=== PATIENT | female | born 1955 | race Hispanic/Latino ===

== ENCOUNTER 2017-08-21 23:30 | Inpatient (IN) | payer BC ==
[2017-08-21] MEDS ORDERED: IPRATROPIUM BROM 0.5MG/2.5ML ONE (23:51)
[2017-08-21] MEDS ORDERED: METHYLPREDNISOLONE 125 MG INJ ONE (23:51)
[2017-08-21] MEDS ORDERED: ALBUTEROL 2.5 MG/3 ML NEB SOL ONE (23:51)
[2017-08-21] MEDS ORDERED: FUROSEMIDE 100 MG/10 ML VIAL IV ONE (23:57)
[2017-08-21] MEDS ORDERED: NITROGLYCERIN 0.4 MG/TAB SL ONE (23:58)
[2017-08-22 00:05] LABS: Absolute Lymphocytes (CBC) 2.3 K/uL (0.7-4.9); Absolute Monocytes 0.5 K/uL (0.1-1.3); Absolute Neutrophil 8.4 K/uL (1.8-8.0); Basophils % 0.6 % (0-1.3); Eosinophils % 2.4 % (0-4.4); Hematocrit 45.5 % (36.0-45.0); Lymphocytes % 19.9 % (15.3-44.8); MCH 24.6 pg (27.0-35.0); MCV 77.4 fL (80-100); MPV 11.3 fL (7.6-11.3); Monocytes % 4.2 % (3.3-12.3); RBC Red Blood Cell Count 5.88 M/uL (3.86-4.86)
[2017-08-22 00:10] LABS: Protime INR 0.89
[2017-08-22 00:14] LABS: Arterial Blood Carboxyhemoglob 0.9 % (0-1.5); Blood Gas Oxyhemoglobin 96.3 % (94-97); Blood O2 Saturation 98.2 % (92-98.5)
[2017-08-22 00:16] LABS: Potassium 4.3 mEq/L (3.6-5.0)
[2017-08-22 00:22] LABS: Albumin 4.3 g/dL (3.2-5.5); Bilirubin Direct 0.1 mg/dL (0-0.2); Bilirubin Total 0.4 mg/dL (0.3-1.2); Magnesium 2.3 mg/dL (1.8-2.5); Protein, Total 9.2 g/dL (6.0-8.3)
[2017-08-22 00:26] LABS: CKMB Creatine Kinase MB 1.6 ng/ml (0.3-4.0)
--- NOTE | 2017-08-22 01:09 | ER ---
Nurse's Notes [facility] Name: Allyson Cleaning Age: 62 yrs Sex: Female : 1955 Arrival Date: 08/21/2017 Time: 23:31 Bed 6 Private MD: Jac Huang S Diagnosis: Acute respiratory distress. Severe hypertension. Chronic renal disease Presentation: 08/21 23:41 Presenting complaint: Patient states: SOB with cough, sudden onset. pt with wheezing. ak1 Transition of care: patient was not received from another setting of care. Onset of symptoms was August 21, 2017. Risk Assessment: Do you want to hurt yourself or someone else? Patient reports no desire to harm self or others. Initial Sepsis Screen: Does the patient meet any 2 criteria? No. Patient's initial sepsis screen is negative. Does the patient have a suspected source of infection? No. Patient's initial sepsis screen is negative. Care prior to arrival: None. 23:41 Method Of Arrival: Ambulatory ak1 23:41 Acuity: MARY ELLEN 2 ak1 Triage Assessment: 23:43 General: Appears distressed, uncomfortable, Behavior is cooperative. Pain: Denies pain. ak1 EENT: No signs and/or symptoms were reported regarding the EENT system. Neuro: No deficits noted. Cardiovascular: No deficits noted. Respiratory: Reports shortness of breath cough that is air hunger Onset: The symptoms/episode began/occurred suddenly , the patient has moderate shortness of breath. Historical: - Allergies: 23:43 Sulfa (Sulfonamide Antibiotics); ak1 - Home Meds: 23:43 atenolol 50 mg Oral tab [Active]; clonidine HCl 0.1 mg Oral tab [Active]; clopidogrel ak1 75 mg Oral tab [Active]; Lasix 20 mg Oral tab [Active]; Plavix 75 mg Oral tab once daily [Active]; - PMHx: 23:43 NV; ak1 23:45 Hypertension; ak1 - PSHx: 23:43 Heart stents; ak1 - Immunization history:: Adult Immunizations unknown. - Social history:: Smoking status: Patient/guardian denies using tobacco. - Ebola Screening: : No symptoms or risks identified at this time. Screenin:40 Abuse screen: Denies threats or abuse. Denies injuries from another. Nutritional mg2 screening: No deficits noted. Tuberculosis screening: No symptoms or risk factors identified. 08/22 00:26 Fall Risk mg2 Assessment: 00:07 General: Appears distressed, Behavior is calm, cooperative. Pain: Denies pain. Neuro: mg2 Level of Consciousness is awake, alert, obeys commands, Oriented to person, place, time. Cardiovascular: Capillary refill < 3 seconds Patient's skin is warm and dry. Cardiovascular: Rhythm is regular. Respiratory: Airway is patent Respiratory effort is even, labored, Respiratory pattern is regular, symmetrical, tachypnea Breath sounds with wheezes bilaterally. in left posterior upper lobe, right posterior upper lobe, left posterior lower lobe, right posterior middle lobe and right posterior lower lobe. GI: No signs and/or symptoms were reported involving the gastrointestinal system. : No signs and/or symptoms were reported regarding the genitourinary system. EENT: No signs and/or symptoms were reported regarding the EENT system. Derm: Skin is intact, Skin is pink, warm \T\ dry. normal. Musculoskeletal: No signs and/or symptoms reported regarding the musculoskeletal system. 00:26 Reassessment: patient passed urine and stool in ed. mg2 Vital Signs: 08/21 23:43 Pulse 115; Resp 24; Temp 98.6(O); Pulse Ox 83% on R/A; Weight 83.91 kg (R); Height 5 ak1 ft. 3 in. (160.02 cm) (R); Pain 0/10; 23:43 Pulse Ox 88% on 4 lpm NC; ak1 08/22 00:26 BP 225 / 115; Pulse 110; Resp 22; Pulse Ox 96% on Nebulizer Mask; Pain 0/10; mg2 01:03 BP 182 / 94; Pulse 108; Resp 20; Pulse Ox 93% on R/A; Pain 0/10; mg2 01:13 BP 173 / 81; Pulse 103; Resp 20; Pulse Ox 98% 3 lpm ; Pain 0/10; mg2 08/21 23:43 Body Mass Index 32.77 (83.91 kg, 160.02 cm) ak1 ED Course: 08/21 23:31 Patient arrived in ED. es 23:31 Jac Huang MD is Private Physician. es 23:34 Sohan Qiu MD is Attending Physician. pkl 23:35 Clive Tipton RN is Primary Nurse. mg2 23:42 Triage completed. ak1 23:44 Arm band placed on Patient placed in an exam room, on a stretcher, on oxygen, on pulse ak1 oximetry, Patient notified of wait time. 08/22 00:00 Inserted saline lock: 22 gauge in right hand, using aseptic technique. Blood collected. bp 00:08 X-ray completed. Portable x-ray completed in exam room. Patient tolerated procedure kw well. 00:10 XRAY Chest (1 view) In Process Unspecified. EDMS 00:18 Notified ED physician of a critical lab result(s). d dimer of 831. fc 00:25 Patient has correct armband on for positive identification. Placed in gown. Bed in low mg2 position. Call light in reach. Side rails up X 1. Door closed. Warm blanket given. Assisted to bedside commode. 01:07 Mariam Olivo MD is Hospitalizing Provider. pkl 01:17 No provider procedures requiring assistance completed. mg2 01:43 Patient admitted, IV remains in place. mg2 Administered Medications: 00:00 Drug: Nitroglycerin 0.4 mg Route: Sublingual; bp 01:01 Follow up: Response: No adverse reaction; Blood pressure is lowered mg2 01:01 Follow up: Response: No adverse reaction mg2 00:00 Drug: Lasix 80 mg Route: IVP; Site: right hand; bp 01:00 Follow up: Response: No adverse reaction; Other; patient passed urine and sob relieved mg2 00:06 Drug: SOLU-Medrol 125 mg Route: IVP; Site: right hand; mg2 01:02 Follow up: Response: No adverse reaction mg2 00:07 Drug: Albuterol - atroVENT (3:1) (2.5 mg - 0.5 mg) 3 ml Route: Nebulizer; mg2 01:01 Follow up: Response: No adverse reaction; Other; wheezing decreased mg2 Intake: Outcome: 01:08 Decision to Hospitalize by Provider. pkl 02:05 Admitted to Tele accompanied by tech, via wheelchair, room 415, with chart, Report mg2 called to BERTA Wu 02:05 Condition: stable 02:05 Instructed on the need for admit, Demonstrated understanding of instructions. 02:35 Patient left the ED. mg2 Signatures: Dispatcher [employer] Sohan Churchill MD MD pkl Valerie Matson Felicia, RN RN fc Stefany Myles Amber, RN RN ak1 Sampson Orta, RN RN bp Clive Tipton, RN RN mg2
--- NOTE | 2017-08-22 01:09 | EDPHYS ---
Physician Documentation [facility] Name: Allyson Cleaning Age: 62 yrs Sex: Female : 1955 Arrival Date: 08/21/2017 Time: 23:31 Bed 6 Private MD: Jac Huang S ED Physician Sohan Qiu HPI: 08/21 23:46 This 62 yrs old Female presents to ER via Ambulatory with complaints of pkl Wheezing < 1 Year, Breathing Difficulty. 23:46 The patient has shortness of breath at rest. Onset: The symptoms/episode began/occurred pkl today. Associated signs and symptoms: Pertinent positives: non-productive cough. Historical: - Allergies: 23:43 Sulfa (Sulfonamide Antibiotics); ak1 - Home Meds: 23:43 atenolol 50 mg Oral tab [Active]; clonidine HCl 0.1 mg Oral tab [Active]; clopidogrel ak1 75 mg Oral tab [Active]; Lasix 20 mg Oral tab [Active]; Plavix 75 mg Oral tab once daily [Active]; - PMHx: 23:43 AK; ak1 23:45 Hypertension; ak1 - PSHx: 23:43 Heart stents; ak1 - Immunization history:: Adult Immunizations unknown. - Social history:: Smoking status: Patient/guardian denies using tobacco. - Ebola Screening: : No symptoms or risks identified at this time. ROS: 23:46 Eyes: Negative for injury, pain, redness, and discharge, ENT: Negative for injury, pkl pain, and discharge, Neck: Negative for injury, pain, and swelling, Cardiovascular: Negative for chest pain, palpitations, and edema. 23:46 Respiratory: Positive for cough, with no reported sputum, shortness of breath, wheezing. 23:46 Abdomen/GI: Negative for abdominal pain, nausea, vomiting, and diarrhea. 23:46 Back: Negative for acute changes. 23:46 : Negative for urinary symptoms. 23:46 MS/extremity: Negative for acute changes. 23:46 Skin: Negative for rash. 23:46 Neuro: Negative for altered mental status. Exam: 23:46 Head/Face: Normocephalic, atraumatic. Eyes: Pupils equal round and reactive to light, pkl extra-ocular motions intact. Lids and lashes normal. Conjunctiva and sclera are non-icteric and not injected. Cornea within normal limits. Periorbital areas with no swelling, redness, or edema. ENT: Nares patent. No nasal discharge, no septal abnormalities noted. Tympanic membranes are normal and external auditory canals are clear. Oropharynx with no redness, swelling, or masses, exudates, or evidence of obstruction, uvula midline. Mucous membranes moist. Neck: Trachea midline, no thyromegaly or masses palpated, and no cervical lymphadenopathy. Supple, full range of motion without nuchal rigidity, or vertebral point tenderness. No Meningismus. Chest/axilla: Normal chest wall appearance and motion. Nontender with no deformity. No lesions are appreciated. Cardiovascular: Regular rate and rhythm with a normal S1 and S2. No gallops, murmurs, or rubs. Normal PMI, no JVD. No pulse deficits. 23:46 Respiratory: mild respiratory distress is noted, Respirations: labored breathing, that is mild, Breath sounds: rales, that are mild, are scattered, bronchial sounds, that are mild, are scattered. 23:46 Abdomen/GI: Exam negative for acute changes. 23:46 Back: Exam negative for acute changes. 23:46 : Exam negative for acute changes. 23:46 Musculoskeletal/extremity: Exam is negative for acute changes. 23:46 Skin: Exam negative for rash. 23:46 Neuro: Orientation: is normal, Mentation: is normal, Cranial nerves: grossly normal, Motor: is normal. Vital Signs: 23:43 Pulse 115; Resp 24; Temp 98.6(O); Pulse Ox 83% on R/A; Weight 83.91 kg (R); Height 5 ak1 ft. 3 in. (160.02 cm) (R); Pain 0/10; 23:43 Pulse Ox 88% on 4 lpm NC; ak1 / 00:26 BP 225 / 115; Pulse 110; Resp 22; Pulse Ox 96% on Nebulizer Mask; Pain 0/10; mg2 01:03 BP 182 / 94; Pulse 108; Resp 20; Pulse Ox 93% on R/A; Pain 0/10; mg2 01:13 BP 173 / 81; Pulse 103; Resp 20; Pulse Ox 98% 3 lpm ; Pain 0/10; mg2 06/12 23:43 Body Mass Index 32.77 (83.91 kg, 160.02 cm) ak MDM: 08/21 23:34 Patient medically screened. [facility] 08/22 01:06 Data reviewed: vital signs, nurses notes, lab test result(s), EKG, radiologic studies, pkl plain films. 08/21 23:44 Order name: Basic Metabolic Panel; Complete Time: 00:58 pkl 08/21 23:44 Order name: BNP; Complete Time: 00:58 pkl 08/21 23:44 Order name: CBC with Diff pkl 08/21 23:44 Order name: Ckmb; Complete Time: 00:58 pkl 08/21 23:44 Order name: CPK; Complete Time: 00:58 pkl 08/21 23:44 Order name: LFT's; Complete Time: 00:58 pkl 08/21 23:44 Order name: Magnesium; Complete Time: 00:58 pkl 08/21 23:44 Order name: PT-INR; Complete Time: 00:58 pkl 08/21 23:44 Order name: Ptt, Activated; Complete Time: 00:58 pkl 08/21 23:44 Order name: Troponin (emerg Dept Use Only); Complete Time: 00:58 pkl 08/21 23:44 Order name: ABG; Complete Time: 00:58 pkl 08/21 23:44 Order name: D-Dimer; Complete Time: 00:58 pk 08/22 01:01 Order name: Hemoglobin A1c pk 08/22 01:40 Order name: Urine Dipstick--Ancillary (enter results) 08/21 23:44 Order name: XRAY Chest (1 view) pk 08/21 23:44 Order name: EKG; Complete Time: 23:44 pk 08/21 23:44 Order name: Cardiac monitoring; Complete Time: 23:48 pkl 08/21 23:44 Order name: EKG - Nurse/Tech; Complete Time: 00:00 pkl 08/21 23:44 Order name: IV Saline Lock; Complete Time: 23:48 pkl 08/21 23:44 Order name: Labs collected and sent; Complete Time: 23:48 pkl 08/21 23:44 Order name: O2 Per Protocol; Complete Time: 23:48 pkl 08/21 23:44 Order name: O2 Sat Monitoring; Complete Time: 23:49 pk 08/21 23:44 Order name: Urine Dipstick-Ancillary (obtain specimen); Complete Time: 01:33 pkl 08/22 02:24 Order name: Urine Dipstick-Ancillary; Complete Time: 02:42 EDMS Administered Medications: 00:00 Drug: Nitroglycerin 0.4 mg Route: Sublingual; bp 01:01 Follow up: Response: No adverse reaction; Blood pressure is lowered mg2 01:01 Follow up: Response: No adverse reaction mg2 00:00 Drug: Lasix 80 mg Route: IVP; Site: right hand; bp 01:00 Follow up: Response: No adverse reaction; Other; patient passed urine and sob relieved mg2 00:06 Drug: SOLU-Medrol 125 mg Route: IVP; Site: right hand; mg2 01:02 Follow up: Response: No adverse reaction mg2 00:07 Drug: Albuterol - atroVENT (3:1) (2.5 mg - 0.5 mg) 3 ml Route: Nebulizer; mg2 01:01 Follow up: Response: No adverse reaction; Other; wheezing decreased mg2 Disposition: 08/22/17 01:08 Hospitalization ordered by Mariam Olivo for Observation. Preliminary diagnosis is Acute respiratory distress. Severe hypertension. Chronic renal disease. - Bed requested for Telemetry/MedSurg (observation). - Status is Observation. mg2 - Condition is Stable. - Problem is new. - Symptoms have improved. UTI on Admission? No Signatures: Dispatcher [employer] EDMS Sohan Qiu MD MD pkl Chretien, Felicia, RN RN Dunia Nieves RN RN ak1 Sampson Orta RN RN bp Clive Tipton RN RN mg2 Corrections: (The following items were deleted from the chart) 01:09 01:08 Hospitalization Ordered by Mariam Olivo MD for Observation. Preliminary fc diagnosis is Acute respiratory distress. Severe hypertension. Chronic renal disease. Bed requested for Telemetry/MedSurg (observation). Status is Observation. Condition is Stable. Problem is new. Symptoms have improved. UTI on Admission? No. pkl 02:35 01:09 08/22/2017 01:08 Hospitalization Ordered by Mariam Olivo MD for Observation. mg2 Preliminary diagnosis is Acute respiratory distress. Severe hypertension. Chronic renal disease. Bed requested for Telemetry/MedSurg (observation). Status is Observation. Condition is Stable. Problem is new. Symptoms have improved. UTI on Admission? No. fc
[2017-08-22 02:24] LABS: Urine Blood 1+ (NEG); Urine Glucose TRACE (NEG); Urine Protein 2+ (NEG)
[2017-08-22] MEDS ORDERED: HYDRALAZINE HCL 20 MG/ML VIAL IV PRN (02:24)
[2017-08-22] MEDS ORDERED: IPRATROPIUM BROM 0.5MG/2.5ML NEB PRN (02:24)
[2017-08-22] MEDS ORDERED: ACETAMINOPHEN 500 MG TAB PO PRN (02:24)
[2017-08-22] MEDS ORDERED: ALBUTEROL 2.5 MG/3 ML NEB SOL NEB PRN (02:24)
[2017-08-22] MEDS ORDERED: ONDANSETRON 4 MG/2 ML VIAL IV PRN (02:24)
[2017-08-22 02:54] VITALS: BMI 34.2
[2017-08-22 03:04] LABS: A1c Component 1.16 mg/dL; Hemoglobin A1c 8.9 % (4-6.0)
[2017-08-22 04:50] LABS: Absolute Lymphocytes (CBC) 0.6 K/uL (0.7-4.9); Absolute Monocytes 0.1 K/uL (0.1-1.3); Absolute Neutrophil 12.2 K/uL (1.8-8.0); Basophils % 0.3 % (0-1.3); Hematocrit 43.3 % (36.0-45.0); Lymphocytes % 4.4 % (15.3-44.8); MCV 77.5 fL (80-100); MPV 11.2 fL (7.6-11.3); Monocytes % 0.9 % (3.3-12.3); RBC Red Blood Cell Count 5.59 M/uL (3.86-4.86)
[2017-08-22] MEDS ORDERED: FUROSEMIDE 40 MG/4 ML VIAL IV ONE (05:00)
[2017-08-22 05:13] LABS: Potassium 4.3 mEq/L (3.6-5.0)
[2017-08-22 05:14] LABS: Blood Morphology Comment NOT SEEN (NOT SEEN); Platelet Estimate ADEQ; Urine White Blood Cell Casts OK
[2017-08-22 05:28] VITALS: TEMP 97.9
[2017-08-22] MEDS ORDERED: GLUCAGON 1 MG/VIAL IM PRN (06:03)
[2017-08-22] MEDS ORDERED: D50W 25 GM/50 ML SYRINGE IV PRN (06:03)
[2017-08-22] MEDS ORDERED: METOPROLOL TAR 25 MG TAB PO SCH (06:06)
--- NOTE | 2017-08-22 06:19 | EKG ---
Test Date: 2017-08-21 Test Time: 23:52:10 Corner Trimmer Operator: PAM MEASUREMENT RESULTS: Intervals: Rate: 96 WI: 156 QRSD: 80 QT: 354 QTc: 447 [place]: P: 60 WI: 156 QRS: 26 T: 106 INTERPRETIVE STATEMENTS: Normal sinus rhythm Septal infarct, age undetermined ST & T wave abnormality, consider lateral ischemia Abnormal ECG Compared to ECG 07/09/2016 02:34:47 ST (T wave) deviation now present T-wave abnormality no longer present Myocardial infarct finding still present Possible ischemia still present Electronically Signed On 08-22-17 06:18:58 CDT by Danyel Castellanos
--- NOTE | 2017-08-22 06:26 | P.HP ---
Certification for Inpatient Patient admitted to: Observation With expected LOS: <2 Midnights Practitioner: I am a practitioner with admitting privileges, knowledge of patient current condition, hospital course, and medical plan of care. Services: Services provided to patient in accordance with Admission requirements found in Title 42 Section 412.3 of the Code of Federal Regulations Patient History Date of Service: 08/22/17 Reason for admission: acute respiratory failure History of Present Illness: Ms Cleaning is a 62 years old woman with history of CAD, s/p stent placement, HTN, dyslipidemia, who came to ED complaining of SOB. The patient was having dinner with her , when start feeling burning chest pain, that she believed was secondary to gastric reflux. She took some tums and the pain subside after several minutes. Then, suddenly start feeling SOB, associated with dry cough. She has no history of fever or chills. At arrival to ED her BP was 225/115, O2 Sat 83%, CXR shows bilateral infiltrate consistent with fluid overload. She was treated with IV lasix, Nitro SL, breathing treatments. Gradually her symptoms resolved, and her BP decreased. At my encounter she was on non-distress, and was not complaining of chest pain. Initial trop I negative, EKG shows T wave inversion on lateral leads. Allergies Sulfa (Sulfonamide Antibiotics Allergy (Uncoded 08/22/17 02:39) Unknown - Past Medical/Surgical History Diabetic: Yes -: HTN -: HYPERLIPIDEMIA -: CHF -: ID -: HEART STENT -: X3 -: cyst removal from ovary - Family History Brother -: Heart disease, Diabetes Mother -: Heart disease Father -: Heart disease - Social History Smoking Status: Never smoker Alcohol use: Yes CD- Drugs: No Caffeine use: Yes Place of Residence: Home Review of Systems 10-point ROS is otherwise unremarkable Physical Examination - Vital Signs Temperature: 97.9 F Blood Pressure: 188/88 Pulse: 90 Respirations: 20 Pulse Ox (%): 98 - Physical Exam General: Alert, In no apparent distress HEENT: Atraumatic, PERRLA, Mucous membr. moist/pink, EOMI, Sclerae nonicteric Neck: Supple, 2+ carotid pulse no bruit, No LAD, Without JVD or thyroid abnormality Respiratory: Normal air movement, Crackles/rales (bibasilar rales) Cardiovascular: Regular rate/rhythm, Normal S1 S2 Gastrointestinal: Normal bowel sounds, No tenderness Musculoskeletal: No tenderness, Swelling (bilateral LE edema 1+) Integumentary: No rashes Neurological: Normal speech, Normal strength at 5/5 x4 extr, Normal tone, Normal affect Lymphatics: No axilla or inguinal lymphadenopathy - Studies Laboratory Data (last 24 hrs) 08/21/17 23:50: PT 10.5, INR 0.89, APTT 30.0 08/21/17 23:50: WBC 11.6 H, Hgb 14.5, Hct 45.5 H, Plt Count 211 08/21/17 23:50: B-Natriuretic Peptide 225 H 08/21/17 23:50: Sodium 138, Potassium 4.3, BUN 41 H, Creatinine 1.76 H, Glucose 283 H, Magnesium 2.3, Total Bilirubin 0.4, AST 22, ALT 13, Alkaline Phosphatase 145 H Assessment and Plan - Problems (Diagnosis) (1) Pulmonary edema Current Visit: Yes Status: Acute Qualifiers: Chronicity: acute Qualified Code(s): J81.0 - Acute pulmonary edema (2) CAD (coronary artery disease) Onset Date: 07/10/16 Current Visit: No Status: Acute Qualifiers: Coronary Disease-Associated Artery/Lesion type: solomon artery [place] vs. transplanted heart: solomon heart Associated angina: with unstable angina Qualified Code(s): I25.110 - Atherosclerotic heart disease of solomon coronary artery with unstable angina pectoris (3) CKD (chronic kidney disease), stage III Onset Date: 07/10/16 Current Visit: No Status: Acute (4) Diabetes type 2, uncontrolled Onset Date: 07/10/16 Current Visit: No Status: Acute Qualifiers: Diabetes mellitus intermediate insulin use: without intermediate use Diabetes mellitus complication status: with unspecified complications Qualified Code(s) : E11.8 - Type 2 diabetes mellitus with unspecified complications; E11.65 - Type 2 diabetes mellitus with hyperglycemia (5) Essential (primary) hypertension Onset Date: 07/10/16 Current Visit: No Status: Acute - Plan The patient came to the hospital due to respiratory failure secondary to flash pulmonary edema in context of HTN emergency. Her troponin I was normal initially but subsequent one was elevated. EKG shows signs of lateral ischemia, will repeat EKG. The patient symptoms improved after treatment, and currently is asymptomatic, however, her BP is still elevated. Will order beta chet, PRN IV hydralazine, ASA, full anticoagulation with Lovenox, ECHO, consult cardiology. Serial EKG and cardiac enzymes. - Advance Directives Does patient have a Living Will: No Does patient have a Durable POA for Healthcare: No
[2017-08-22] MEDS: INSULIN -REGULAR HUMAN 50 UNIT/0.5 ML ML SQ SCH ×2 (06:30→12:23)
--- NOTE | 2017-08-22 07:46 | EKG ---
Test Date: 2017-08-22 Test Time: 06:29:17 After School Program Assistant: MONICA MEASUREMENT RESULTS: Intervals: Rate: 112 MI: 154 QRSD: 84 QT: 330 QTc: 450 [place]: P: 58 MI: 154 QRS: 1 T: 129 INTERPRETIVE STATEMENTS: Sinus tachycardia Left ventricular hypertrophy with repolarization abnormality Cannot rule out Septal infarct, age undetermined Abnormal ECG Compared to ECG 08/21/2017 23:52:10 Left ventricular hypertrophy now present Sinus rhythm no longer present Electronically Signed On 08-22-17 07:45:23 CDT by Danyel Castellanos
--- NOTE | 2017-08-22 08:46 | RAD REPORT ---
EXAM DESCRIPTION: RAD - Chest Single View - 08/22/2017 12:11 am CLINICAL HISTORY: Cough, shortness of breath COMPARISON: 07/09/2016 FINDINGS: Portable technique limits examination quality. Vague ill-defined opacity medial right lung base is noted, likely representing pneumonia. The lungs a re otherwise clear. The heart is normal in size. No displaced fractures. IMPRESSION: Ill-defined opacity in the medial right lung base suspicious for developing pneumonia/ a spiration.
[2017-08-22] MEDS ORDERED: ENOXAPARIN 100 MG/ML SYR SQ SCH (09:00)
[2017-08-22] MEDS ORDERED: ENOXAPARIN 40 MG/0.4 ML SQ SCH (09:00)
[2017-08-22] MEDS ORDERED: ASPIRIN EC 81 MG TAB PO SCH (09:00)
--- NOTE | 2017-08-22 10:20 | RAD REPORT ---
EXAM DESCRIPTION: VAS - Extrem Venous W Compress Alan - 08/22/2017 9:38 am CLINICAL HISTORY: Elevated D-dimer, leg pain and swelling COMPARISON: None. TECHNIQUE: Real-time sonographic evaluation of the bilateral lower extremity deep venous systems was performed. FINDINGS: Normal compressibility, flow augmentation, phasic flow and spontaneous flow are identified in the left and right lower extremity deep venous systems. No intraluminal filling defects seen. IMPRESSION: No DVT in either lower extremity.
[2017-08-22 11:20] VITALS: BP 180/110
--- NOTE | 2017-08-22 12:25 | ECHO ---
HEIGHT: 5 ft 3 in WEIGHT: 193 lb 9.6 oz DATE OF STUDY: 08/22/[address]: Mariam Schrieber MD 2-DIMENSIONAL: YES M.MODE: YES DOPPLER: YES COLOR FLOW: YES TDS: YES PORTABLE: DEFINITY: BUBBLE STUDY: DIAGNOSIS: CHEST PAIN CARDIAC HISTORY: CATHERIZATION: NO SURGERY: NO PROSTHETIC VALVE: NO PACEMAKER: NO MEASUREMENTS (cm) DIASTOLIC (NORMALS) SYSTOLIC (NORMALS) IVSd 1.3 (0.6-1.2) LA Diam 3.9 (1.9-4.0) LVEF 55% LVIDd 4.6 (3.5-5.7) LVIDs 3.3 (2.0-3.5) %FS 29% LVPWd 1.3 (0.6-1.2) Ao Diam 2.8 (2.0-3.7) 2 DIMENSIONAL ASSESSMENT: RIGHT ATRIUM: NORMAL LEFT ATRIUM: DILATED RIGHT VENTRICLE: NORMAL LEFT VENTRICLE: LEFT VENTRICULAR HYPERTROPHY TRICUSPID VALVE: NORMAL MITRAL VALVE: NORMAL PULMONIC VALVE: NORMAL AORTIC VALVE: NORMAL PERICARDIAL EFFUSION: NONE AORTIC ROOT: NORMAL LEFT VENTRICULAR WALL MOTION: NORMAL DOPPLER/COLOR FLOW: IMPAIRED LEFT VENTRICULAR RELAXATION. TRACE TRICUSPID REGURGITAITON. NORMAL RIGHT VENTRICULAR SYSTOLIC PRESSURE. COMMENTS: NORMAL LEFT VENTRICULAR EJECTION FRACTION. LEFT VENTRICULAR HYPERTROPHY. DILATED LEFT ATRIUM. IMPAIRED LEFT VENTRICULAR RELAXATION. TRACE TRICUSPID REGURGITATION. TECHNICALLY DIFFICULT STUDY. TECHNOLOGIST: ANGELO MCDONALD
--- NOTE | 2017-08-22 13:27 | CON ---
History Of Present Illness: Mrs. Cleaning is a 62-year-old. She came to the hospital, not with chest pa in. She insists that was not pain, but she felt wheezy and had difficulty breathing. Does not reall y admit to tightness in the chest or pain. When she came in, she was in sinus tachycardia. There wa s marked ST abnormality and since she has been in the hospital overnight, she has had what looks like possible some interstitial pulmonary edema, which is improved and troponins have gone up from 0.03 t o 0.12. She has a history of a myocardial infarction and a stent about 15 years ago, was treated by Dr. Marcano. She no longer follows up with Dr. Marcano. Outpatient medications are CholestOff. She is known to have hypertension and diabetes, but she does not actually list any medications that she take s at home. She is allergic to sulfa. Uses no tobacco, no alcohol, no illegal drugs. We have [address] that she takes atenolol, clonidine, clopidogrel, and Lasix. Those are listed on other charts and she does not really have a memory of it, so I think we are in doubt is what medicine she really takes . Physical Examination: Vital Signs: 5 feet 3 inches, 193 pounds. HEENT: Normal. Lungs: Clear. Heart: Within normal limits. There is no carotid bruit. Extremities: Revealed distal pulses are diminished. Laboratory Data: Reveals a creatinine of 1.85, blood sugar of 427. Her total cholesterol was 207, L DL was 129, B-natriuretic peptide 255. Impression: I believe Ms. Cleaning has had a non-ST elevation non-Q-wave myocardial infarction. I belie ve she should have a cardiac cath and possible stent. At this point, the patient wants to contact Dr Davon Marcano to see what he thinks. She is not willing to proceed with a cardiac cath. Thank you very much for your kind referral of Mrs. Cleaning. I will follow her with you. KAREN/CONCEPCION Voice ID: [id number] Report ID: [id number]
[2017-08-22 14:48] VITALS: O2SAT 98
--- NOTE | 2017-08-22 15:09 | P.DS ---
Admission Date: 08/22/17 Discharge Date: 08/22/17 Disposition: ROUTINE DISCHARGE Discharge Condition: FAIR Reason for Admission: acute respiratory failure - Problems (1) Pulmonary edema Current Visit: Yes Status: Acute Qualifiers: Chronicity: acute Qualified Code(s): J81.0 - Acute pulmonary edema (2) CAD (coronary artery disease) Onset Date: 07/10/16 Current Visit: No Status: Acute Qualifiers: Coronary Disease-Associated Artery/Lesion type: [place] artery Hoh vs. transplanted heart: [place] heart Associated angina: with unstable angina Qualified Code(s): I25.110 - Atherosclerotic heart disease of [place] coronary artery with unstable angina pectoris (3) CHF exacerbation Onset Date: 07/10/16 Current Visit: No Status: Acute (4) CKD (chronic kidney disease), stage III Onset Date: 07/10/16 Current Visit: No Status: Acute (5) Diabetes type 2, uncontrolled Onset Date: 07/10/16 Current Visit: No Status: Acute Qualifiers: Diabetes mellitus prison insulin use: without petroleum terminal plant operator use Diabetes mellitus complication status: with unspecified complications Qualified Code(s) : E11.8 - Type 2 diabetes mellitus with unspecified complications; E11.65 - Type 2 diabetes mellitus with hyperglycemia (6) Essential (primary) hypertension Onset Date: 07/10/16 Current Visit: No Status: Acute Brief History of Present Illness: From H&P Ms Cleaning is a 62 years old woman with history of CAD, s/p stent placement, HTN, dyslipidemia, who came to ED complaining of SOB. The patient was having dinner with her , when start feeling burning chest pain, that she believed was secondary to gastric reflux. She took some tums and the pain subside after several minutes. Then, suddenly start feeling SOB, associated with dry cough. She has no history of fever or chills. At arrival to ED her BP was 225/115, O2 Sat 83%, CXR shows bilateral infiltrate consistent with fluid overload. She was treated with IV lasix, Nitro SL, breathing treatments. Gradually her symptoms resolved, and her BP decreased. At my encounter she was on non-distress, and was not complaining of chest pain. Initial trop I negative, EKG shows T wave inversion on lateral leads. Hospital Course: Pt admitted for SOB secondary to flash pulmonary edema from uncontrolled BP. IV prn meds used, AceI added. BP better controlled. Lasix IV given with heavy diuresis. SOB resolved. Cardiology Dr. Castellanos saw her however pt refused heart cath. She has elevated trop and t wave chagnes on EKG. No chest pain. Patient is alert and oriented. She understands risks associated w refusing heart cath including TX, . at the bedside. Nurse Greta present. Patient states she will f/up w her facilities operations technician Dr. Marcano. I spoke w him and he will see her bryan in his [place] clinic. Echo showed LVH and EF 55%. Counseled regarding CKD III. She did not know she had chronic kidney disease. She will be started on AceI for renal protection. She understands that she needs to f/up w a jewelry sales as out pt. she can develop ESRD and be dependant on HD if her kidneys worsen. Vital Signs/Physical Exam: Temp Pulse Resp BP Pulse Ox 97.9 F 84 18 180/110 H 98 08/22/17 12:00 08/22/17 12:00 08/22/17 12:00 08/22/17 12:00 08/22/17 12:00 General: Alert, In no apparent distress, Oriented x3 HEENT: Atraumatic, PERRLA, EOMI Neck: Supple, JVD not distended Respiratory: Clear to auscultation bilaterally, Normal air movement Cardiovascular: Regular rate/rhythm, Normal S1 S2 Gastrointestinal: Normal bowel sounds, No tenderness Musculoskeletal: No tenderness Integumentary: No rashes Neurological: Normal speech, Normal tone, Normal affect Lymphatics: No axilla or inguinal lymphadenopathy Laboratory Data at Discharge: WBC 13.0 K/uL (4.3-10.9) H 08/22/17 03:35 Hgb 14.0 g/dL (12.0-15.0) 08/22/17 03:35 Hct 43.3 % (36.0-45.0) 08/22/17 03:35 Plt Count 174 K/uL (152-406) 08/22/17 03:35 PT 10.5 SECONDS (9.5-12.5) 08/21/17 23:50 INR 0.89 08/21/17 23:50 APTT 30.0 SECONDS (24.3-36.9) 08/21/17 23:50 Sodium 137 mEq/L (135-145) 08/22/17 03:35 Potassium 4.3 mEq/L (3.6-5.0) 08/22/17 03:35 BUN 43 mg/dL (6-20) H 08/22/17 03:35 Creatinine 1.85 mg/dL (0.44-1.00) H 08/22/17 03:35 Glucose 427 mg/dL (65-120) H* 08/22/17 03:35 Magnesium 2.3 mg/dL (1.8-2.5) 08/21/17 23:50 Total Bilirubin 0.4 mg/dL (0.3-1.2) 08/21/17 23:50 AST 22 IU/L (10-42) 08/21/17 23:50 ALT 13 IU/L (10-60) 08/21/17 23:50 Alkaline Phosphatase 145 IU/L (42-121) H 08/21/17 23:50 Troponin I 0.12 ng/mL (<0.03) H 08/22/17 03:55 B-Natriuretic Peptide 225 pg/ml (<=100) H 08/21/17 23:50 Triglycerides 133 mg/dL (35-160) 08/22/17 03:35 Cholesterol 207 mg/dL (<200) H 08/22/17 03:35 HDL Cholesterol 51 mg/dL (29-89) 08/22/17 03:35 Cholesterol/HDL Ratio 4.06 08/22/17 03:35 Home Medications: Aspirin [Aspirin EC 81 MG] 162 mg PO DAILY #60 tablet. 08/22/17 Atorvastatin Calcium [Lipitor] 80 mg PO BEDTIME #30 tab 08/22/17 Clopidogrel Bisulfate [Plavix*] 75 mg PO DAILY 08/22/17 Furosemide 20 mg PO DAILY 08/22/17 Lisinopril [Prinivil*] 10 mg PO DAILY #30 tab 08/22/17 Metoprolol Tartrate 25 mg PO BID 08/22/17 New Medications: Aspirin [Aspirin EC 81 MG] 162 mg PO DAILY #60 tablet. Atorvastatin Calcium [Lipitor] 80 mg PO BEDTIME #30 tab Lisinopril [Prinivil*] 10 mg PO DAILY #30 tab Patient Discharge Instructions: f/up w PCP in 2-3 days. Call primary facilities operations technician Dr. Attar today to schedule appt this week. Return to ER for worsening condition Diet: ADA Activity: Ad fermín Time spent managing pt's care (in minutes): 45
[2017-08-22] MEDS ORDERED: ATORVASTATIN 80 MG TAB PO SCH (21:00)
[2017-08-23] MEDS ORDERED: CLOPIDOGREL 75 MG TABLET PO SCH (09:00)
[2017-08-23] MEDS ORDERED: LISINOPRIL 10 MG TAB PO SCH (09:00)
== END 2017-08-22 16:31 | disposition home or self-care (01) | DRG 280 ==
LOC: ER 23:30 → ERHOLD 08-22 01:13 → 4TH 08-22 02:09 → OBSVTOIN 08-22 14:02
PROVIDERS: ADMIT Internal Medicine; ATTEND Internal Medicine
DX: I13.0 Hypertensive heart and chronic kidney disease with heart failure and stage 1 through stage 4 chronic kidney disease, or unspecified chronic kidney disease (principal); J96.00 Acute respiratory failure, unspecified whether with hypoxia or hypercapnia; I21.4 Non-ST elevation (NSTEMI) myocardial infarction; I50.31 Acute diastolic (congestive) heart failure; I25.110 Atherosclerotic heart disease of native coronary artery with unstable angina pectoris; N18.3 Chronic kidney disease, stage 3 (moderate); E11.22 Type 2 diabetes mellitus with diabetic chronic kidney disease; E11.65 Type 2 diabetes mellitus with hyperglycemia; Z95.5 Presence of coronary angioplasty implant and graft; E78.5 Hyperlipidemia, unspecified; Z79.02 Long term (current) use of antithrombotics/antiplatelets; Z88.2 Allergy status to sulfonamides; I25.2 Old myocardial infarction; R06.03 Acute respiratory distress
CPT/HCPCS: 36415; 71045; 80048; 80061; 80076; 81003; 82550; 82553; 82805; 82962; 83036; 83735; 83880; 84484; 85025; 85379; 85610; 85730; 93005; 93306; 93970; 94640; 94760; 96374; 96375; 99285; G0378; J0360; J1650; J2930

== ENCOUNTER 2022-02-06 14:42 | Inpatient (IN) | payer OTHER ==
[2022-02-06] MEDS ORDERED: LEVALBUTEROL 1.25 MG/3 ML NEB ONE (15:57)
[2022-02-06] MEDS ORDERED: IPRATROPIUM BROM 0.5MG/2.5ML ONE (15:57)
[2022-02-06 15:59] LABS: Absolute Lymphocytes (CBC) 1.3 K/uL (0.7-4.9); Lymphocytes % 11.7 % (15.3-44.8); MCV 81.5 fL (80-100)
--- NOTE | 2022-02-06 16:00 | RAD REPORT ---
EXAM DESCRIPTION: RAD - Chest Single View - 02/06/2022 3:53 pm CLINICAL HISTORY: SOB COMPARISON: Chest Single View dated 08/21/2017; Chest Single View dated 07/09/2016 FINDINGS: Lines: None. Lungs: Large area developing consolidation in the left lung. Pleural: Small pleural effusions bilaterally. Cardiac: The heart size is within normal limits. Mediastinum: Within normal limits. Bones: No acute fractures. Other: None IMPRESSION: Left lung process which may represent a large consolidative pneumonia or mass. Recommend further evaluation with chest CT.
[2022-02-06 16:14] LABS: Albumin 3.6 g/dL (3.4-5.0); Bilirubin Direct 0.4 mg/dL (0-0.2); Bilirubin Total 1.5 mg/dL (0.2-1.0); Magnesium 2.3 mg/dL (1.8-2.4); Potassium 3.8 mmol/L (3.5-5.1); Protein, Total 9.2 g/dL (6.4-8.2); Troponin High Sensitivity 29.3 pg/mL (<58.9)
[2022-02-06 16:53] LABS: SARS-COV-2 RT PCR NEGATIVE (NEGATIVE)
[2022-02-06] MEDS ORDERED: CEFTRIAXONE 1000 MG/VIAL ONE (17:33)
[2022-02-06] MEDS ORDERED: AZITHROMYCIN 500 MG INJ IVPB ONE (17:34)
[2022-02-06] MEDS ORDERED: NA CHLORIDE 0.9% 250 ML ONE (17:34)
--- NOTE | 2022-02-06 17:34 | EDPHYS ---
Physician Documentation [facility] Name: Allyson Cleaning Age: 67 yrs Sex: Female : 1955 Arrival Date: 02/06/2022 Time: 14:47 Bed 12 Private MD: Jac Huang S ED Physician Joao Lennon HPI: 02/06 15:35 This 67 yrs old Female presents to ER via Wheelchair with complaints of cp Pneumonia,Low O2-90. 15:35 The patient has shortness of breath at rest. cp 15:35 Onset: The symptoms/episode began/occurred 2 day(s) ago. Duration: The symptoms are cp continuous, and are steadily getting worse. Associated signs and symptoms: Pertinent negatives: chest pain, productive cough, diaphoresis, fever, hemoptysis, vomiting. Patient reports oxygen sats were low while at dialysis today. Patient referred to ED for evaluation. Historical: - Allergies: 15:30 Sulfa (Sulfonamide Antibiotics); iw - PMHx: 15:30 Hypertension; [place]; dialysis; iw - Immunization history:: Adult Immunizations unknown. - Social history:: Smoking status: unknown. ROS: 15:40 Constitutional: Negative for body aches, chills, fever, poor PO intake. cp 15:40 Eyes: Negative for injury, pain, redness, and discharge. cp 15:40 ENT: Negative for drainage from ear(s), ear pain, sore throat, difficulty swallowing, difficulty handling secretions. 15:40 Cardiovascular: Positive for edema, Negative for chest pain, palpitations. 15:40 Respiratory: Positive for shortness of breath, at rest. Negative for wheezing. 15:40 Abdomen/GI: Negative for abdominal pain, nausea, vomiting, and diarrhea, constipation. 15:40 Back: Negative for pain at rest, pain with movement. 15:40 Skin: Negative for cellulitis, rash. 15:40 Neuro: Negative for altered mental status, dizziness, headache, syncope, weakness. 15:40 All other systems are negative. Exam: 15:45 Constitutional: The patient appears in no acute distress, alert, awake, cp non-diaphoretic, non-toxic, well developed, well nourished. 15:45 Head/Face: Normocephalic, atraumatic. cp 15:45 Eyes: Periorbital structures: appear normal, Conjunctiva: normal, no exudate, no injection, Sclera: no appreciated abnormality, Lids and lashes: appear normal, bilaterally. 15:45 ENT: External ear(s): are unremarkable, Nose: is normal, Mouth: Lips: moist, Oral mucosa: pink and intact, moist, Posterior pharynx: Airway: no evidence of obstruction, patent, erythema, is not appreciated, exudate, is not appreciated. 15:45 Neck: ROM/movement: is normal, is supple, without pain, no range of motions limitations, no meningismus. 15:45 Chest/axilla: Inspection: normal. 15:45 Cardiovascular: Rate: tachycardic, Rhythm: regular, Edema: ankle edema, that is mild, JVD: is not appreciated. 15:45 Respiratory: the patient does not display signs of respiratory distress, Respirations: shallow respirations, that is mild, Breath sounds: decreased breath sounds, that are mild, throughout, stridor, is not appreciated, wheezing: is not appreciated. 15:45 Abdomen/GI: Inspection: abdomen appears normal, Palpation: abdomen is soft and non-tender, in all quadrants. 15:45 Back: pain, is absent, ROM is normal. 15:45 Neuro: Orientation: to person, place \T\ time. Mentation: is normal, Motor: moves all fours, strength is normal, Sensation: is normal. 16:15 ECG was reviewed by the Attending Physician. Vital Signs: 15:35 BP 160 / 69; Pulse 102; Resp 18; Temp 98.9; Pulse Ox 90% on R/A; iw 16:00 BP 160 / 59; Pulse 95; Resp 20; Pulse Ox 95% on 3 lpm NC; em6 17:00 BP 157 / 62; Pulse 89; Resp 20; Pulse Ox 94% on 3 lpm NC; em6 18:00 BP 144 / 56; Pulse 95; Resp 20; Pulse Ox 95% 3 lpm ; em6 19:00 BP 135 / 49; Pulse 98; Resp 20; Pulse Ox 92% on 3 lpm NC; em6 20:00 BP 134 / 78; Pulse 94; Resp 20; Pulse Ox 94% on 3 lpm NC; em6 Procedures: 19:06 Peripheral line: by aseptic technique a peripheral line was placed in the right cp external jugular vein. MDM: 15:30 Patient medically screened. 17:35 Data reviewed: vital signs, nurses notes, lab test result(s), EKG, radiologic studies, cp plain films. 17:35 Test interpretation: by ED physician or midlevel provider: ECG, plain radiologic cp studies. 17:35 Counseling: I had a detailed discussion with the patient and/or guardian regarding: the cp historical points, exam findings, and any diagnostic results supporting the discharge/admit diagnosis, lab results, radiology results, the need for further work-up and treatment in the hospital. Response to treatment: the patient's symptoms have mildly improved after treatment. 02/06 15:31 Order name: Basic Metabolic Panel; Complete Time: 16:54 02/06 16:55 Interpretation: Normal except: NA 132; BUN 43; CRE 4.17; GFR 11. 02/06 15:31 Order name: CBC with Diff; Complete Time: 16:06 02/06 16:06 Interpretation: Normal except: WBC 11.10; HGB 11.5; HCT 35.0; MCH 26.8; DAHLIA% 80.7; LYM% cp 11.7; NEUT A 9.0. 02/06 15:31 Order name: LFT's; Complete Time: 16:54 02/06 16:56 Interpretation: Normal except: ALK 135; BILIT 1.5; BILID 0.4; TP 9.2; GLOB 5.6; A/G 0.6. 02/06 15:31 Order name: Magnesium; Complete Time: 16:54 02/06 15:31 Order name: NT PRO-BNP; Complete Time: 16:54 02/06 16:56 Interpretation: Reviewed. 02/06 15:31 Order name: PT-INR; Complete Time: 19:18 02/06 15:31 Order name: Troponin HS; Complete Time: 16:54 02/06 15:31 Order name: XRAY Chest (1 view); Complete Time: 16:06 02/06 17:12 Interpretation: Report review. 02/06 15:31 Order name: COVID-19/FLU A+B; Complete Time: 16:54 02/06 16:08 Order name: Blood Culture Adult (2) 02/06 16:08 Order name: Lactate w/ 2H reflex if indic.; Complete Time: 22:42 02/06 16:08 Order name: Procalcitonin; Complete Time: 22:42 02/06 22:42 Interpretation: Reviewed. 02/06 16:11 Order name: CT Chest Wo Con 02/06 18:33 Order name: CT; Complete Time: 19:18 EDMS 02/06 22:42 Interpretation: Report reviewed. 02/06 15:31 Order name: EKG; Complete Time: 15:32 02/06 15:31 Order name: Cardiac monitoring; Complete Time: 16:19 02/06 15:31 Order name: EKG - Nurse/Tech; Complete Time: 16:19 02/06 15:31 Order name: IV Saline Lock 02/06 15:31 Order name: Labs collected and sent; Complete Time: 16:19 02/06 15:31 Order name: O2 Per Protocol; Complete Time: 16:19 02/06 15:31 Order name: O2 Sat Monitoring; Complete Time: 16:19 02/06 17:47 Order name: CONS Physician Consult EDMS EC:15 Rate is 102 beats/min. Rhythm is regular. SD interval is normal. QRS interval is cp normal. QT interval is normal. T waves are Inverted in leads aVL, aVR. Interpreted by me. Reviewed by me. Administered Medications: 16:05 Drug: Xopenex (levalbuterol) (3) 1.25 mg Route: Inhalation; iw 17:00 Follow up: Response: No adverse reaction em6 16:05 Drug: AtroVENT (ipratropium) Aerosol 0.5 mg Route: Inhalation; iw 17:00 Follow up: Response: No adverse reaction em6 19:23 Drug: Rocephin (cefTRIAXone) 1 grams Route: IV; Rate: calculated rate; Site: right em6 jugular; 20:11 Follow up: Response: No adverse reaction; IV Intake: 10ml em6 19:23 Drug: Zithromax (azithromycin) 500 mg Route: IVPB; Infused Over: 1 hrs; Site: right em6 jugular; 20:11 Follow up: Response: No adverse reaction; IV Status: Infusion continued upon admission em6 Disposition: 19:29 Co-signature as Attending Physician, Joao NARANJO was immediately available on-site ms3 in the Emergency Department for consultation in the care of the patient.. Disposition Summary: 02/06/22 17:34 Hospitalization Ordered Hospitalization Status: Inpatient Admission cp Provider: Tyler Joya cp [facility] cp Condition: Stable cp Problem: new cp Symptoms: have improved cp Bed/Room Type: Standard cp Room Assignment: 405(02/06/22 19:33) cg Diagnosis - Pneumonia due to other specified infectious organisms cp - Hypoxemia cp Discharge Instructions: - Discharge Summary Sheet cp Forms: - Medication Reconciliation Form cp - SBAR form cp Signatures: Dispatcher [employer] EDKisha Souza RN RN iw Cruz Portillo, SUPERVISOR CONTINGENTS-C SUPERVISOR CONTINGENTS-Cla1 Fran Desir PA PA cp Tonia Jeter RN RN Joao Lennon DO DO ms3 Arely Thomas RN RN em6 Corrections: (The following items were deleted from the chart) 19:33 17:34 cp cg
--- NOTE | 2022-02-06 17:34 | ER ---
Nurse's Notes [facility] Name: Allyson Cleaning Age: 67 yrs Sex: Female : 1955 Arrival Date: 02/06/2022 Time: 14:47 Bed 12 Private MD: Jac Huang S Diagnosis: Pneumonia due to other specified infectious organisms;Hypoxemia Presentation: 02/06 15:29 Chief complaint: Patient states: her Oxygen was low in dialysis , she has been SOB iw since Sunday. Coronavirus screen: Client presents with at least one sign or symptom that may indicate coronavirus-19. Ebola Screen: Patient negative for fever greater than or equal to 101.5 degrees Fahrenheit, and additional compatible Ebola Virus Disease symptoms Patient denies exposure to infectious person. Patient denies travel to an Ebola-affected area in the 21 days before illness onset. Onset of symptoms was February 06, 2022. 15:29 Method Of Arrival: Wheelchair iw 15:29 Acuity: MARY ELLEN 3 iw 16:00 Initial Sepsis Screen: Does the patient meet any 2 criteria? RR > 20 per min. HR > 90 em6 bpm. Yes Does the patient have a suspected source of infection? No. Patient's initial sepsis screen is negative. Risk Assessment: Do you want to hurt yourself or someone else? Patient reports no desire to harm self or others. Historical: - Allergies: 15:30 Sulfa (Sulfonamide Antibiotics); iw - PMHx: 15:30 Hypertension; [place]; dialysis; iw - Immunization history:: Adult Immunizations unknown. - Social history:: Smoking status: unknown. Screenin:00 Abuse screen: Denies threats or abuse. Nutritional screening: No deficits noted. em6 Tuberculosis screening: No symptoms or risk factors identified. 18:40 Fall Risk IV access (20 points). Total Sanders Fall Scale indicates No Risk (0-24 pts). em6 Assessment: 16:00 General: Appears in no apparent distress. Behavior is cooperative. Pain: Denies pain. em6 Neuro: An Agitation-Sedation Scale (RASS): 0 - Alert and Calm. Cardiovascular: Patient's skin is warm and dry. Rhythm is sinus rhythm. Respiratory: Airway is patent Respiratory effort is even, unlabored, Respiratory pattern is regular, symmetrical, tachypnea Breath sounds with crackles in left posterior upper lobe and left posterior lower lobe. GI: No signs and/or symptoms were reported involving the gastrointestinal system. : No signs and/or symptoms were reported regarding the genitourinary system. EENT: No signs and/or symptoms were reported regarding the EENT system. Derm: No signs and/or symptoms reported regarding the dermatologic system. Musculoskeletal: Circulation, motion, and sensation intact. Range of motion: intact in all extremities. 16:00 Reassessment: dialysis port on the left lower arm. em6 17:00 Reassessment: Patient appears in no apparent distress at this time. No changes from em6 previously documented assessment. Patient and/or family updated on plan of care and expected duration. Pain level reassessed. Patient is alert, oriented x 3, equal unlabored respirations, skin warm/dry/pink. 18:00 Reassessment: Patient appears in no apparent distress at this time. No changes from em6 previously documented assessment. Patient and/or family updated on plan of care and expected duration. Pain level reassessed. Patient is alert, oriented x 3, equal unlabored respirations, skin warm/dry/pink. 19:00 Reassessment: Patient appears in no apparent distress at this time. No changes from em6 previously documented assessment. Patient and/or family updated on plan of care and expected duration. Pain level reassessed. Patient is alert, oriented x 3, equal unlabored respirations, skin warm/dry/pink. 20:00 Reassessment: Patient appears in no apparent distress at this time. No changes from em6 previously documented assessment. Patient and/or family updated on plan of care and expected duration. Pain level reassessed. Patient is alert, oriented x 3, equal unlabored respirations, skin warm/dry/pink. Vital Signs: 15:35 BP 160 / 69; Pulse 102; Resp 18; Temp 98.9; Pulse Ox 90% on R/A; iw 16:00 BP 160 / 59; Pulse 95; Resp 20; Pulse Ox 95% on 3 lpm NC; em6 17:00 BP 157 / 62; Pulse 89; Resp 20; Pulse Ox 94% on 3 lpm NC; em6 18:00 BP 144 / 56; Pulse 95; Resp 20; Pulse Ox 95% 3 lpm ; em6 19:00 BP 135 / 49; Pulse 98; Resp 20; Pulse Ox 92% on 3 lpm NC; em6 20:00 BP 134 / 78; Pulse 94; Resp 20; Pulse Ox 94% on 3 lpm NC; em6 ED Course: 14:47 Patient arrived in ED. mr 14:48 Jac Huang MD is Private Physician. mr 15:08 Fran Desir PA is PHCP. cp 15:08 Joao Lennon DO is Attending Physician. cp 15:30 Triage completed. iw 15:54 XRAY Chest (1 view) In Process Unspecified. EDMS 15:59 Arely Thomas, RN is Primary Nurse. em6 16:00 Arm band placed on. em6 16:00 Bed in low position. Call light in reach. Side rails up X2. em6 16:00 joy operator on. Pulse ox on. NIBP on. Warm blanket given. em6 16:05 COVID-19/FLU A+B Sent. iw 17:33 Tyler Joya MD is Hospitalizing Provider. cp 18:40 Inserted saline lock: 18 gauge in right EJ, using aseptic technique. Blood collected. em6 inserted by jorden heller. 19:11 Lactate w/ 2H reflex if indic. Sent. em6 19:11 Procalcitonin Sent. em6 19:11 Blood Culture Adult (2) Sent. em6 20:12 No provider procedures requiring assistance completed. Patient admitted, IV remains in em6 place. Administered Medications: 16:05 Drug: Xopenex (levalbuterol) (3) 1.25 mg Route: Inhalation; iw 17:00 Follow up: Response: No adverse reaction em6 16:05 Drug: AtroVENT (ipratropium) Aerosol 0.5 mg Route: Inhalation; iw 17:00 Follow up: Response: No adverse reaction em6 19:23 Drug: Rocephin (cefTRIAXone) 1 grams Route: IV; Rate: calculated rate; Site: right em6 jugular; 20:11 Follow up: Response: No adverse reaction; IV Intake: 10ml em6 19:23 Drug: Zithromax (azithromycin) 500 mg Route: IVPB; Infused Over: 1 hrs; Site: right em6 jugular; 20:11 Follow up: Response: No adverse reaction; IV Status: Infusion continued upon admission em6 Medication: 20:14 VIS not applicable for this client. em6 Intake: 20:11 IV: 10ml; Total: 10ml. em6 Outcome: 17:34 Decision to Hospitalize by Provider. cp 20:12 Patient left the ED. bb 20:12 Admitted to Tele accompanied by nurse, via stretcher, room 405, with oxygen. em6 20:12 Condition: stable 20:13 Instructed on the need for admit, Demonstrated understanding of instructions. em6 Signatures: Dispatcher [employer] EDHI Rebecca Mcclendon mr Cherie Marquez RN RN Kisha Blair RN RN iw Page, Corey, MALINDA PA Arely Newberry RN RN em6 Corrections: (The following items were deleted from the chart) 16:42 16:00 Respiratory: Airway is patent Respiratory effort is even, unlabored, Respiratory em6 pattern is regular, symmetrical, tachypnea em6 17:47 16:49 Reassessment: port on the left lower arm em6 em6 20:11 20:10 BP 134 / 78; Pulse 94bpm; Resp 20bpm; Pulse Ox 94% 3 lpm Nasal Cannula; em6 em6
[2022-02-06] MEDS ORDERED: HYDROCODONE/APAP 5/325 MG TAB PO PRN (17:47)
[2022-02-06] MEDS ORDERED: ONDANSETRON 4 MG/2 ML VIAL IV PRN (17:51)
[2022-02-06] MEDS ORDERED: LABETALOL 20 MG/4ML SYRINGE IV PRN (17:52)
--- NOTE | 2022-02-06 17:56 | P.HP ---
Certification for Inpatient Patient admitted to: Inpatient With expected LOS: >2 Midnights Patient will require the following post-hospital care: None Practitioner: I am a practitioner with admitting privileges, knowledge of patient current condition, hospital course, and medical plan of care. Services: Services provided to patient in accordance with Admission requirements found in Title 42 Section 412.3 of the Code of Federal Regulations Patient History Date of Service: 02/06/22 Reason for admission: Shortness of breath History of Present Illness: Patient is a 67-year-old female with a past medical history significant for FL, HLD, ESRD, CAD who presents with complaint of shortness of breath onset 2 days ago. Patient reported associated signs and symptoms of dry cough, fever, chills, rhinorrhea and dizziness. Patient denies any other signs and symptoms. Symptoms are aggravated or relieved by nothing. Patient decided to present to the hospital due to worsening symptoms. Of note, patient reported having dialysis today. Patient on MWF schedule. Allergies Sulfa (Sulfonamide Antibiotics Allergy (Uncoded 08/22/17 02:39) Unknown Home Medications: Aspirin [Aspirin EC 81 MG] 162 mg PO DAILY #60 tablet.dr 08/22/17 Atorvastatin Calcium [Lipitor] 80 mg PO BEDTIME #30 tab 08/22/17 Clopidogrel Bisulfate [Plavix*] 75 mg PO DAILY 08/22/17 Furosemide 20 mg PO DAILY 08/22/17 Metoprolol Tartrate 25 mg PO BID 08/22/17 lisinopriL [Prinivil*] 10 mg PO DAILY #30 tab 08/22/17 - Past Medical/Surgical History Diabetic: Yes -: HTN -: HYPERLIPIDEMIA -: CHF -: FL -: HEART STENT -: X3 -: cyst removal from ovary - Family History Brother -: Heart disease, Diabetes Mother -: Heart disease Father -: Heart disease - Social History Smoking Status: Never smoker Alcohol use: Yes CD- Drugs: No Caffeine use: Yes Place of Residence: Home Review of Systems General: Fever, Chills Eyes: Unremarkable ENT: Other (Rhinorrhea) Respiratory: Cough, Shortness of Breath Cardiovascular: Other (Dizziness) Gastrointestinal: Unremarkable Genitourinary: Unremarkable Musculoskeletal: Unremarkable Integumentary: Unremarkable Neurological: Other (Dizziness) Lymphatics: Unremarkable Physical Examination - Physical Exam General: Alert, Oriented x3, Cooperative, Mild distress HEENT: Atraumatic, PERRLA, Mucous membr. moist/pink, EOMI, Sclerae nonicteric Neck: Supple, 2+ carotid pulse no bruit, No LAD, Without JVD or thyroid abnormality Respiratory: Diminished, Crackles/rales Cardiovascular: No edema, Regular rate/rhythm, Normal S1 S2 Capillary refill: <2 Seconds Gastrointestinal: Normal bowel sounds, Soft and benign, No tenderness Musculoskeletal: No clubbing, No swelling, No contractures, No tenderness Integumentary: No rashes, No breakdown, No significant lesion Neurological: Normal gait, Normal speech, Normal strength at 5/5 x4 extr, Normal tone, Normal affect Lymphatics: No axilla or inguinal lymphadenopathy - Studies Laboratory Data (last 24 hrs) 02/06/22 15:45: WBC 11.10 H, Hgb 11.5 L, Hct 35.0 L, Plt Count 158 02/06/22 15:45: Sodium 132 L, Potassium 3.8, BUN 43 H, Creatinine 4.17 H, Glucose 100, Magnesium 2.3, Total Bilirubin 1.5 H, AST 22, ALT 38, Alkaline Phosphatase 135 H Assessment and Plan - Plan --Bilateral pneumonia. Noted on imaging. Blood cultures pending. Continue antibiotics, neb treatment with albuterol\Atrovent and O2 therapy. --ESRD. Patient on MWF dialysis schedule. Patient reported that she had dialysis today. Nephrology consulted. Further management per screen vent binder. --Hypertension. Poorly controlled. Continue home medications and labetalol as needed. --Hyperlipidemia. Continue statin. --Mild leukocytosis. Blood cultures pending. Continue antibiotics. --Elevated BNP. Likely secondary to volume overload due to ESRD. Echocardiogram pending to assess LV\valvular functions and wall motion. Dialysis schedule per screen vent binder. --History of FL\CAD with stents. Continue aspirin, Plavix and statin. -- Anemia of chronic disease. H&H stable. We will continue to monitor hemoglobin and transfuse if less than 7.0. --DVT prophylaxis with heparin subQ. Discharge Plan: Home Plan to discharge in: Greater than 2 days - Advance Directives Does patient have a Living Will: No Does patient have a Durable POA for Healthcare: No - Code Status/Comfort Care Code Status Assessed: Yes Physician Review: Patient Assessed, Agree with Above Assessment and Plan Critical Care: No
--- NOTE | 2022-02-06 18:31 | RAD REPORT ---
EXAM DESCRIPTION: CT - Thorax Wo Con - 02/06/2022 6:17 pm CLINICAL HISTORY: shortness of breath COMPARISON: Chest Single View dated 02/06/2022 FINDINGS: Chest Wall: No suspicious thyroid nodules or pathologic lymphadenopathy. Lungs: Bilateral pulmonary opacities, worse in the left upper lung. Pleura: Small bilateral pleural effusions. Mediastinum/jhony: No pathologic lymphadenopathy. Pulmonary arteries/Aorta: Limited evaluation without contrast. No aortic aneurysm. Heart: No significant pericardial effusion. Normal heart size. Multi-vessel coronary artery disease. Upper abdomen: No acute abnormality. Bones: No acute abnormality. Diffuse idiopathic skeletal hyperostosis noted in the spine. All CT scans are performed using dose optimization technique as appropriate and may include automated exposure control or mA/KV adjustment according to patient size. IMPRESSION: Bilateral airspace disease, worse in the left upper lung favored to represent pneumonia (viral) however asymmetric edema is within the differential.
[2022-02-06 19:06] LABS: Protime INR 1.13
[2022-02-06] MEDS: ASPIRIN 81 MG CHEWABLE TABLET PO SCH (20:00)
[2022-02-06] MEDS ORDERED: EPOETIN ALFA 10,000 UNIT/ML VIAL SQ SCH (20:00)
[2022-02-06] MEDS: IPRATROPIUM BROM 0.5MG/2.5ML NEB SCH (20:30)
[2022-02-06] MEDS: ALBUTEROL 2.5 MG/3 ML NEB SOL NEB SCH (20:30)
[2022-02-06] MEDS ORDERED: METOPROLOL TAR 25 MG TAB PO SCH (21:00)
[2022-02-06] MEDS: ATORVASTATIN 80 MG TAB PO SCH (21:00)
--- NOTE | 2022-02-06 21:26 | P.CNS ---
Date of Consult: 02/06/22 Reason for Consult: ESRD Requesting Physician: Tyler Joya Chief Complaint: Shortness of breath History of Present Illness: Patient is a 67-year-old female with a past medical history significant for CT, HLD, ESRD, CAD who presents with complaint of shortness of breath onset 2 days ago. Patient reported associated signs and symptoms of dry cough, fever, chills, rhinorrhea and dizziness. Patient denies any other signs and symptoms. Symptoms are aggravated or relieved by nothing. Patient decided to present to the hospital due to worsening symptoms. Of note, patient reported having dialysis today. Patient on MWF schedule. [facility] 15:35 This 67 yrs old Female presents to ER via Wheelchair with complaints of cp Pneumonia,Low O2-90. Allergies Sulfa (Sulfonamide Antibiotics Allergy (Uncoded 08/22/17 02:39) Unknown Home medications list reviewed: Yes Home Medications: Aspirin [Aspirin EC 81 MG] 162 mg PO DAILY #60 tablet. 08/22/17 Atorvastatin Calcium [Lipitor] 80 mg PO BEDTIME #30 tab 08/22/17 Clopidogrel Bisulfate [Plavix*] 75 mg PO DAILY 08/22/17 Furosemide 20 mg PO DAILY 08/22/17 Metoprolol Tartrate 25 mg PO BID 08/22/17 lisinopriL [Prinivil*] 10 mg PO DAILY #30 tab 08/22/17 - Past Medical/Surgical History Diabetic: Yes -: HTN -: HLD -: CHF -: CT -: ESRD on HD (Dr. Garza) -: HEART STENT -: X3 -: cyst removal from ovary - Family History Brother Medical History: Heart disease, Diabetes Mother Medical History: Heart disease Father Medical History: Heart disease - Social History Smoking Status: Unknown if ever smoked Alcohol use: Yes CD- Drugs: No Caffeine use: Yes Place of Residence: Home Review of Systems 10-point ROS is otherwise unremarkable General: Weakness, Malaise Respiratory: SOB with Excertion Physical Examination Temp Pulse Resp BP Pulse Ox 98.5 F 95 H 19 148/64 H 92 02/06/22 20:00 02/06/22 20:00 02/06/22 20:00 02/06/22 20:00 02/06/22 20:00 General: In no apparent distress, Oriented x3, Cooperative HEENT: Atraumatic Neck: Supple Respiratory: Diminished Cardiovascular: Regular rate/rhythm, Edema Gastrointestinal: Soft and benign, Non-distended Musculoskeletal: No clubbing, No contractures Integumentary: No rashes, No cyanosis Neurological: Normal speech Laboratory Data (last 24 hrs) 02/06/22 15:45: WBC 11.10 H, Hgb 11.5 L, Hct 35.0 L, Plt Count 158 02/06/22 15:45: Sodium 132 L, Potassium 3.8, BUN 43 H, Creatinine 4.17 H, Glucose 100, Magnesium 2.3, Total Bilirubin 1.5 H, AST 22, ALT 38, Alkaline Phosphatase 135 H Imagings Data: [employer] EXAM DESCRIPTION: RAD - Chest Single View - 02/06/2022 3:53 pm CLINICAL HISTORY: SOB COMPARISON: Chest Single View dated 08/21/2017; Chest Single View dated 07/09/2016 FINDINGS: Lines: None. Lungs: Large area developing consolidation in the left lung. Pleural: Small pleural effusions bilaterally. Cardiac: The heart size is within normal limits. Mediastinum: Within normal limits. Bones: No acute fractures. Other: None IMPRESSION: Left lung process which may represent a large consolidative pneumonia or mass. Recommend further evaluation with chest CT. [employer] EXAM DESCRIPTION: CT - Thorax Wo Con - 02/06/2022 6:17 pm CLINICAL HISTORY: shortness of breath COMPARISON: Chest Single View dated 02/06/2022 FINDINGS: Chest Wall: No suspicious thyroid nodules or pathologic lymphadenopathy. Lungs: Bilateral pulmonary opacities, worse in the left upper lung. Pleura: Small bilateral pleural effusions. Mediastinum/jhony: No pathologic lymphadenopathy. Pulmonary arteries/Aorta: Limited evaluation without contrast. No aortic aneurysm. Heart: No significant pericardial effusion. Normal heart size. Multi-vessel coronary artery disease. Upper abdomen: No acute abnormality. Bones: No acute abnormality. Diffuse idiopathic skeletal hyperostosis noted in the spine. All CT scans are performed using dose optimization technique as appropriate and may include automated exposure control or mA/KV adjustment according to patient size. IMPRESSION: Bilateral airspace disease, worse in the left upper lung favored to represent pneumonia (viral) however asymmetric edema is within the differential. Conclusions/Impression: ESRD on HD -HD MWF -Extra HD tomorrow for UF Hyponatremia -HD as ordered HTN with CKD/ CHF -Continue Lisinopril -Change Metoprolol to Atenolol Diastolic CHF, A/C LE Edema -Low sodium diet -HD with UF Anemia in CKD -Retacrit MWF CKD MBD -Start Ergo -Start Renvela BL PNA Acute hypoxic respiratory failure -Continue Abx -Continue Oxygen supplementation Thank you kindly for the consultation.
[2022-02-06] MEDS ORDERED: atenoloL 25 MG TAB PO SCH (21:30)
[2022-02-06] MEDS ORDERED: NA CHLORIDE 0.9% 1,000 ML IV PRN (21:39)
[2022-02-06] MEDS ORDERED: MANNITOL 25% 12.5 GM/50 ML VIAL IV PRN (21:39)
[2022-02-06 21:45] LABS: Magnesium 2.2 mg/dL (1.8-2.4); Phosphorus 3.2 mg/dL (2.5-4.9); Thyroid Stimulating Hormone 1.27 uIU/mL (0.360-3.740)
[2022-02-06] MEDS: HEPARIN 5000 UNIT/ML 1 ML VIAL SQ SCH (21:59)
[2022-02-06] MEDS ORDERED: ALBUMIN HUMAN 25% 50 ML IV SCH (22:00)
[2022-02-06 23:10] VITALS: BMI 29.9
[2022-02-07 00:26] LABS: Urine Bacteria <20 /HPF (<20); Urine Bilirubin NEGATIVE (Negative); Urine Blood 2+ (Negative); Urine Clarity Turbid (Clear); Urine Color Light-Yellow (Yellow); Urine Glucose NEGATIVE (Negative); Urine Mucus 4+ /HPF (None Seen); Urine Protein 1+ (Negative); Urine RBC 21-50 /HPF (None Seen); Urine Urobilinogen Normal (Normal); Urine WBC Clump Rare /HPF (None Seen); Urine pH 6.5 (5.0-7.0)
[2022-02-07] MEDS: IPRATROPIUM BROM 0.5MG/2.5ML NEB SCH ×4 (01:45→20:45)
[2022-02-07] MEDS: ALBUTEROL 2.5 MG/3 ML NEB SOL NEB SCH ×4 (01:45→20:45)
[2022-02-07 03:53] LABS: Absolute Lymphocytes (CBC) 1.6 K/uL (0.7-4.9); Hematocrit 30.1 % (36.0-45.0); Lymphocytes % 21.7 % (15.3-44.8); MCV 82.2 fL (80-100); MPV 10.1 fL (7.6-11.3); RBC Red Blood Cell Count 3.66 M/uL (3.86-4.86)
[2022-02-07 04:04] LABS: Potassium 3.6 mmol/L (3.5-5.1)
[2022-02-07] MEDS: SEVELAMER CARBONATE 800 MG TABLET PO SCH ×3 (08:00→16:19)
[2022-02-07] MEDS: POTASSIUM CL SA 10 MEQ TAB PO ONE ×2 (09:00→16:21)
[2022-02-07] MEDS: MULTIVITAMINS,THERAPEUT 1 TAB PO SCH ×2 (09:00→16:21)
[2022-02-07] MEDS: ASPIRIN 81 MG CHEWABLE TABLET PO SCH (09:00)
[2022-02-07] MEDS: FUROSEMIDE 20 MG TABLET PO SCH ×2 (09:00→16:18)
[2022-02-07] MEDS: CEFTRIAXONE 1,000 MG in NA CHLORIDE 0.9% 50 ML IVPB SCH ×2 (09:00→16:22)
[2022-02-07] MEDS: AZITHROMYCIN IV 500 MG in NA CHLORIDE 0.9% 250 ML IVPB SCH ×2 (09:00→16:23)
[2022-02-07] MEDS: HEPARIN 5000 UNIT/ML 1 ML VIAL SQ SCH ×2 (09:00→20:30)
[2022-02-07] MEDS: CLOPIDOGREL 75 MG TABLET PO SCH ×2 (09:00→16:21)
[2022-02-07] MEDS: DOCUSATE NA 100 MG CAP PO SCH ×2 (09:00→20:31)
[2022-02-07] MEDS: lisinopriL 10 MG TAB PO SCH ×2 (09:00→16:18)
[2022-02-07] MEDS: ACETAMINOPHEN 325 MG TABLET PO PRN (14:26)
--- NOTE | 2022-02-07 20:04 | P.PN ---
Date of Service: 02/07/22 Vital Signs Temp Pulse Resp BP Pulse Ox 100.5 F 104 H 20 150/60 H 94 02/07/22 16:00 02/07/22 16:18 02/07/22 16:00 02/07/22 16:18 02/07/22 16:00 Medications Acetaminophen (Acetaminophen 325 Mg Tablet) 650 mg PO Q6H PRN PRN Reason: TEMP > 100' F Last Admin: 02/07/22 14:26 Dose: 650 mg Hydrocodone Bitart/Acetaminophen (Hydrocodone/Apap 5/325 Mg Tab) 1 tab PO Q6H PRN PRN Reason: Pain scale 5-7 (Moderate) Albuterol Sulfate (Albuterol 2.5 Mg/3 Ml Neb Guerline) 2.5 mg NEB [id number] [facility] Last Admin: 02/07/22 13:53 Dose: 2.5 mg Aspirin (Aspirin 81 Mg Chewable Tablet) 81 mg PO DAILY [facility] Last Admin: 02/07/22 09:00 Dose: Not Given Atenolol (Atenolol 25 Mg Tab) 25 mg PO BEDTIME [facility] Last Admin: 02/06/22 21:30 Dose: Not Given Atorvastatin Calcium (Atorvastatin 80 Mg Tab) 80 mg PO BEDTIME [facility] Last Admin: 02/06/22 21:00 Dose: Not Given Clopidogrel Bisulfate (Clopidogrel 75 Mg Tablet) 75 mg PO DAILY [facility] Last Admin: 02/07/22 16:21 Dose: 75 mg Docusate Sodium (Docusate Na 100 Mg Cap) 100 mg PO BID [facility] Last Admin: 02/07/22 09:00 Dose: Not Given Epoetin Philipp (Epoetin Philipp 10,000 Unit/Ml Vial) 10,000 unit SQ M,W,F [facility] Ergocalciferol (Drisdol (Vitamin D=Ergocalciferol) 03330 Unit Cap) 50,000 unit PO Q7D@0900 [facility] Furosemide (Furosemide 20 Mg Tablet) 20 mg PO DAILY [facility] Last Admin: 02/07/22 16:18 Dose: 20 mg Heparin Sodium (Porcine) (Heparin 5000 Unit/Ml 1 Ml Vial) 5,000 unit SQ Q12HR [facility] Last Admin: 02/07/22 09:00 Dose: Not Given Heparin Sodium (Porcine) (Heparin 1,000 Unit/Ml Vial) 3,000 unit IV EVERY HD PRN PRN Reason: Prevent Lines Clotting Ceftriaxone Sodium 1,000 mg/ (Sodium Chloride) 50 mls @ 100 mls/hr IVPB DAILY [facility]; Protocol Last Admin: 02/07/22 16:22 Dose: 50 mls Azithromycin 500 mg/ Sodium (Chloride) 250 mls @ 250 mls/hr IVPB DAILY [facility]; Protocol Last Admin: 02/07/22 16:23 Dose: 250 mls Albumin Human (Albumin 25%) 50 mls @ 100 mls/hr IV EVERY HD [facility] Ipratropium Mobile (Ipratropium Brom 0.5mg/2.5ml) 0.5 mg NEB [id number] [facility] Last Admin: 02/07/22 13:53 Dose: 0.5 mg Labetalol HCl (Labetalol 20 Mg/4ml Syringe) 10 mg IV Q6H PRN PRN Reason: Titrate to SBP >160 MMHG Lisinopril (Lisinopril 10 Mg Tab) 10 mg PO DAILY [facility] Last Admin: 02/07/22 16:18 Dose: 10 mg Mannitol (Mannitol 25% 12.5 Gm/50 Ml Vial) 12.5 gm IV EVERY HD PRN PRN Reason: Titrate to SBP (MUST DEFINE) Ondansetron HCl (Ondansetron 4 Mg/2 Ml Vial) 4 mg IV Q6HP PRN PRN Reason: NAUSEA / VOMITING Sevelamer Carbonate (Sevelamer Carbonate 800 Mg Tablet) 800 mg PO TIDWM [facility] Last Admin: 02/07/22 16:19 Dose: 800 mg Sodium Chloride (Flush Normal Saline 10 Ml) 10 ml IV BID [facility] Last Admin: 02/07/22 09:00 Dose: Not Given Vitamin B Complex/Vit C/Folic Acid (Multivitamins,Therapeut 1 Tab) 1 tab PO DAILY [facility] Last Admin: 02/07/22 16:21 Dose: 1 tab Assessment/ Plan: Nephrology No dyspnea No chest pain Feeling better today Her LUE AVF hematoma is improving No acute events overnight Vitals, medications, blood work and imaging reviewed in the chart. General: In no apparent distress, Oriented x3, Cooperative HEENT: Atraumatic Neck: Supple Respiratory: Right base rales Cardiovascular: Regular rate/rhythm, Edema Gastrointestinal: Soft and benign, Non-distended Musculoskeletal: No clubbing, No contractures Integumentary: No rashes, No cyanosis Neurological: Normal speech Laboratory Data (last 24 hrs) 02/06/22 15:45: WBC 11.10 H, Hgb 11.5 L, Hct 35.0 L, Plt Count 158 02/06/22 15:45: Sodium 132 L, Potassium 3.8, BUN 43 H, Creatinine 4.17 H, Glucose 100, Magnesium 2.3, Total Bilirubin 1.5 H, AST 22, ALT 38, Alkaline Phosphatase 135 H Imagings Data: [email or web address] EXAM DESCRIPTION: RAD - Chest Single View - 02/06/2022 3:53 pm CLINICAL HISTORY: SOB COMPARISON: Chest Single View dated 08/21/2017; Chest Single View dated 07/09/2016 FINDINGS: Lines: None. Lungs: Large area developing consolidation in the left lung. Pleural: Small pleural effusions bilaterally. Cardiac: The heart size is within normal limits. Mediastinum: Within normal limits. Bones: No acute fractures. Other: None IMPRESSION: Left lung process which may represent a large consolidative pneumonia or mass. Recommend further evaluation with chest CT. [facility] EXAM DESCRIPTION: CT - Thorax Wo Con - 02/06/2022 6:17 pm CLINICAL HISTORY: shortness of breath COMPARISON: Chest Single View dated 02/06/2022 FINDINGS: Chest Wall: No suspicious thyroid nodules or pathologic lymphadenopathy. Lungs: Bilateral pulmonary opacities, worse in the left upper lung. Pleura: Small bilateral pleural effusions. Mediastinum/jhony: No pathologic lymphadenopathy. Pulmonary arteries/Aorta: Limited evaluation without contrast. No aortic ane urysm. Heart: No significant pericardial effusion. Normal heart size. Multi-vessel coronary artery disease. Upper abdomen: No acute abnormality. Bones: No acute abnormality. Diffuse idiopathic skeletal hyperostosis noted in the spine. All CT scans are performed using dose optimization technique as appropriate and may include automated exposure control or mA/KV adjustment according to patient size. IMPRESSION: Bilateral airspace disease, worse in the left upper lung favored to represent pneumonia (viral) however asymmetric edema is within the differential. Conclusions/Impression: ESRD on HD -HD MWF -Emla cream prn Hyponatremia -HD as ordered HTN with CKD/ CHF -Continue Lisinopril -Continue Atenolol Diastolic CHF, A/C LE Edema -Low sodium diet -HD with UF Anemia in CKD -Retacrit MWF CKD MBD -Continue Ergo -Continue Renvela BL PNA Acute hypoxic respiratory failure -Continue Abx -Continue Oxygen supplementation
[2022-02-07] MEDS: ATORVASTATIN 80 MG TAB PO SCH (20:31)
[2022-02-07] MEDS: atenoloL 50 MG TAB PO SCH (20:31)
[2022-02-08] MEDS ORDERED: CALCIUM CARBONATE CHEW 500MG TAB PO PRN (01:26)
[2022-02-08] MEDS: IPRATROPIUM BROM 0.5MG/2.5ML NEB SCH ×4 (01:40→20:30)
[2022-02-08] MEDS: ALBUTEROL 2.5 MG/3 ML NEB SOL NEB SCH ×4 (01:40→20:30)
[2022-02-08 04:06] LABS: Potassium 4.3 mmol/L (3.5-5.1)
[2022-02-08] MEDS ORDERED: LIDOCAINE/PRILOCAINE CREAM TOP PRN (07:00)
[2022-02-08] MEDS: lisinopriL 10 MG TAB PO SCH (09:00)
[2022-02-08] MEDS: FUROSEMIDE 20 MG TABLET PO SCH (09:00)
[2022-02-08] MEDS: DOCUSATE NA 100 MG CAP PO SCH ×2 (09:28→20:20)
[2022-02-08] MEDS: SEVELAMER CARBONATE 800 MG TABLET PO SCH ×3 (09:28→17:39)
[2022-02-08] MEDS: MULTIVITAMINS,THERAPEUT 1 TAB PO SCH (09:28)
[2022-02-08] MEDS: HEPARIN 5000 UNIT/ML 1 ML VIAL SQ SCH ×2 (09:29→20:21)
[2022-02-08] MEDS: ASPIRIN 81 MG CHEWABLE TABLET PO SCH (09:29)
[2022-02-08] MEDS: CLOPIDOGREL 75 MG TABLET PO SCH (09:29)
[2022-02-08] MEDS: AZITHROMYCIN IV 500 MG in NA CHLORIDE 0.9% 250 ML IVPB SCH (09:29)
[2022-02-08] MEDS: CEFTRIAXONE 1,000 MG in NA CHLORIDE 0.9% 50 ML IVPB SCH (09:30)
[2022-02-08] MEDS: FUROSEMIDE 40 MG/4 ML VIAL IV SCH ×2 (11:20→17:40)
--- NOTE | 2022-02-08 13:23 | P.PN ---
Nephrology (S) Pt remains on LFNC, but reports feeling better and with less dyspnea, no cough reported. Has been OOB Vitals, medications, blood work and imaging reviewed in the chart. General: In no apparent distress, Oriented x3, Cooperative HEENT: Atraumatic Neck: Supple Respiratory: b/l air entry, scattered rales Cardiovascular: Mildly tachy, regular, no sig LE edema Gastrointestinal: Soft and benign, Non-distended Musculoskeletal: No clubbing, No contractures, Lt radiocephalic AVF Integumentary: No rashes, No cyanosis Neurological: Awake, alert, oriented, ormal speech Laboratory Data (last 24 hrs) Reviewed Conclusions/Impression: ESRD on HD -Last HD on Sun, HD ordered for today but if video and sound recorder is unable to get to pt due to busy schedule, pt can wait until tmrw AM to receive her treatment HTN with CKD/ CHF -Continue home meds Diastolic CHF, A/C -Pt is non anuric so will switch to IV lasix while awaiting dialysis/UF PNA unspecified organism, hypoxia -Continue Abx -wean off O2 as tolerated
[2022-02-08] MEDS ORDERED: LIDOCAINE/PRILOCAINE CREAM TOP SCH (14:00)
--- NOTE | 2022-02-08 16:30 | EKG ---
Test Date: 2022-02-06 Test Time: 16:10:42 Decal Maker: MEASUREMENT RESULTS: Intervals: Rate: 102 LA: 178 QRSD: 86 QT: 346 QTc: 450 [place]: P: 76 LA: 178 QRS: -5 T: 98 INTERPRETIVE STATEMENTS: Sinus tachycardia ST & T wave abnormality, consider lateral ischemia Abnormal ECG Compared to ECG 08/22/2017 06:29:17 ST (T wave) deviation now present Possible ischemia now present Left ventricular hypertrophy no longer present Early repolarization no longer present Myocardial infarct finding no longer present Electronically Signed On 02-08-22 16:23:28 EXTRUSION DIE CORRECTOR by Blayne Rosenberg
[2022-02-08] MEDS: ACETAMINOPHEN 325 MG TABLET PO PRN (17:46)
[2022-02-08] MEDS ORDERED: EPOETIN ALFA 10,000 UNIT/ML VIAL SQ SCH (20:00)
[2022-02-08] MEDS: ATORVASTATIN 80 MG TAB PO SCH (20:23)
[2022-02-08] MEDS: atenoloL 50 MG TAB PO SCH (20:24)
[2022-02-08] MEDS ORDERED: carvediloL 25 MG TAB PO SCH (21:00)
[2022-02-08] MEDS ORDERED: AMLODIPINE 10 MG TAB PO SCH (21:00)
[2022-02-09] MEDS: ALBUTEROL 2.5 MG/3 ML NEB SOL NEB SCH ×4 (01:25→20:20)
[2022-02-09] MEDS: IPRATROPIUM BROM 0.5MG/2.5ML NEB SCH ×4 (01:25→20:20)
[2022-02-09 06:06] LABS: Absolute Lymphocytes (CBC) 1.1 K/uL (0.7-4.9); Lymphocytes % 12.1 % (15.3-44.8); MCV 85.3 fL (80-100); MPV 9.9 fL (7.6-11.3); RBC Red Blood Cell Count 3.52 M/uL (3.86-4.86)
[2022-02-09 06:28] LABS: Magnesium 2.4 mg/dL (1.8-2.4); Phosphorus 5.2 mg/dL (2.5-4.9); Potassium 4.4 mmol/L (3.5-5.1)
--- NOTE | 2022-02-09 06:44 | ECHO ---
HEIGHT: 5 ft 3 in WEIGHT: 169 lb 0 oz DATE OF STUDY: 02/08/[address]: Vinicio Pascal 2-DIMENSIONAL: YES M.MODE: YES DOPPLER: YES COLOR FLOW: YES TDS: YES PORTABLE: YES DEFINITY: BUBBLE STUDY: DIAGNOSIS: CONGSETIVE HEART FAILURE CARDIAC HISTORY: CATHERIZATION: SURGERY: PROSTHETIC VALVE: PACEMAKER: MEASUREMENTS (cm) DIASTOLIC (NORMALS) SYSTOLIC (NORMALS) IVSd 1.0 (0.6-1.2) LA Diam 3.5 (1.9-4.0) LVEF 51% LVIDd 4.2 (3.5-5.7) LVIDs 3.1 (2.0-3.5) %FS 26% LVPWd 1.2 (0.6-1.2) Ao Diam 3.2 (2.0-3.7) 2 DIMENSIONAL ASSESSMENT: RIGHT ATRIUM: LEFT ATRIUM: RIGHT VENTRICLE: LEFT VENTRICLE: TRICUSPID VALVE: MITRAL VALVE: PULMONIC VALVE: AORTIC VALVE: PERICARDIAL EFFUSION: AORTIC ROOT: LEFT VENTRICULAR WALL MOTION: NORMAL DOPPLER/COLOR FLOW: TECHNICALLY DIFFICULT STUDY COMMENTS: 1. TECHNICALLY DIFFICULT STUDY 2. GROSSLY NORMAL LEFT VENTRICULAR EJECTION FRACTION AND SIZE 3. NO EFFUSION TECHNOLOGIST: RAMANA RUSSO
[2022-02-09] MEDS: CARVEDILOL 25 MG TABLET PO SCH ×2 (08:00→17:09)
[2022-02-09] MEDS: CEFTRIAXONE 1,000 MG in NA CHLORIDE 0.9% 50 ML IVPB SCH (08:20)
[2022-02-09] MEDS: AZITHROMYCIN IV 500 MG in NA CHLORIDE 0.9% 250 ML IVPB SCH (08:22)
[2022-02-09] MEDS: SEVELAMER CARBONATE 800 MG TABLET PO SCH ×3 (08:26→17:07)
[2022-02-09] MEDS: FUROSEMIDE 40 MG/4 ML VIAL IV SCH ×2 (08:26→17:07)
[2022-02-09] MEDS: HEPARIN 5000 UNIT/ML 1 ML VIAL SQ SCH ×2 (08:26→21:14)
[2022-02-09] MEDS: MULTIVITAMINS,THERAPEUT 1 TAB PO SCH (08:26)
[2022-02-09] MEDS: CLOPIDOGREL 75 MG TABLET PO SCH (08:27)
[2022-02-09] MEDS: ASPIRIN 81 MG CHEWABLE TABLET PO SCH (08:27)
[2022-02-09] MEDS: DOCUSATE NA 100 MG CAP PO SCH ×2 (08:27→21:14)
[2022-02-09] MEDS: lisinopriL 10 MG TAB PO SCH (08:40)
[2022-02-09] MEDS: AMLODIPINE 10 MG TABLET PO SCH ×2 (09:00→21:14)
[2022-02-09] MEDS ORDERED: CEFEPIME 1 GM in NA CHLORIDE 0.9% 100 ML IV SCH (13:00)
[2022-02-09] MEDS: ATORVASTATIN 80 MG TAB PO SCH (21:00)
[2022-02-09] MEDS: atenoloL 50 MG TAB PO SCH (21:00)
--- NOTE | 2022-02-09 21:14 | P.PN ---
Date of Service: 02/09/22 Vital Signs Temp Pulse Resp BP Pulse Ox 98.7 F 85 16 119/51 L 91 02/09/22 16:00 02/09/22 16:00 02/09/22 16:00 02/09/22 16:00 02/09/22 16:00 Medications Acetaminophen (Acetaminophen 325 Mg Tablet) 650 mg PO Q6H PRN PRN Reason: TEMP > 100' F Last Admin: 02/08/22 17:46 Dose: 650 mg Hydrocodone Bitart/Acetaminophen (Hydrocodone/Apap 5/325 Mg Tab) 1 tab PO Q6H PRN PRN Reason: Pain scale 5-7 (Moderate) Albuterol Sulfate (Albuterol 2.5 Mg/3 Ml Neb Guerline) 2.5 mg NEB [id number] [facility] Last Admin: 02/09/22 15:41 Dose: 2.5 mg Aspirin (Aspirin 81 Mg Chewable Tablet) 81 mg PO DAILY [facility] Last Admin: 02/09/22 08:27 Dose: 81 mg Atenolol (Atenolol 50 Mg Tab) 50 mg PO BEDTIME [facility] Last Admin: 02/08/22 20:24 Dose: Not Given Atorvastatin Calcium (Atorvastatin 80 Mg Tab) 80 mg PO BEDTIME [facility] Last Admin: 02/08/22 20:23 Dose: Not Given Calcium Carbonate/Glycine (Calcium Carbonate Chew 500mg Tab) 500 mg PO TID PRN PRN Reason: INDIGESTION Last Admin: 02/08/22 01:33 Dose: 500 mg Clopidogrel Bisulfate (Clopidogrel 75 Mg Tablet) 75 mg PO DAILY [facility] Last Admin: 02/09/22 08:27 Dose: 75 mg Docusate Sodium (Docusate Na 100 Mg Cap) 100 mg PO BID [facility] Last Admin: 02/09/22 08:27 Dose: 100 mg Epoetin Philipp (Epoetin Philipp 10,000 Unit/Ml Vial) 10,000 unit SQ M,W,F [facility] Last Admin: 02/08/22 20:00 Dose: Not Given Ergocalciferol (Drisdol (Vitamin D=Ergocalciferol) 94849 Unit Cap) 50,000 unit PO Q7D@0900 [facility] Furosemide (Furosemide 40 Mg/4 Ml Vial) 40 mg IV BIDL [facility] Last Admin: 02/09/22 17:07 Dose: 40 mg Heparin Sodium (Porcine) (Heparin 5000 Unit/Ml 1 Ml Vial) 5,000 unit SQ Q12HR [facility] Last Admin: 02/09/22 08:26 Dose: 5,000 unit Heparin Sodium (Porcine) (Heparin 1,000 Unit/Ml Vial) 3,000 unit IV EVERY HD PRN PRN Reason: Prevent Lines Clotting Last Admin: 02/09/22 11:41 Dose: 3,000 unit Home Med (Carvedilol 25 Mg Tablet) 1 ea PO BIDWM [facility] Last Admin: 02/09/22 17:09 Dose: 1 ea Home Med (Amlodipine 10 Mg Tablet) 1 ea PO BID [facility] Last Admin: 02/09/22 09:00 Dose: Not Given Azithromycin 500 mg/ Sodium (Chloride) 250 mls @ 250 mls/hr IVPB DAILY [facility]; Protocol Last Admin: 02/09/22 08:22 Dose: 250 mls Albumin Human (Albumin 25%) 50 mls @ 100 mls/hr IV EVERY HD [facility] Cefepime HCl 1 gm/ Sodium (Chloride) 100 mls @ 200 mls/hr IV Q24H [facility] Last Admin: 02/09/22 15:20 Dose: 100 mls Ipratropium [place] (Ipratropium Brom 0.5mg/2.5ml) 0.5 mg NEB [id number] [facility] Last Admin: 02/09/22 15:41 Dose: 0.5 mg Labetalol HCl (Labetalol 20 Mg/4ml Syringe) 10 mg IV Q6H PRN PRN Reason: Titrate to SBP >160 MMHG Lidocaine/Prilocaine (Lidocaine/Prilocaine Cream) 1 appl TOP Q24H PRN PRN Reason: Pain scale 2-4 (Mild) Stop: 02/13/22 23:50 Last Admin: 02/08/22 14:12 Dose: 1 appl Lisinopril (Lisinopril 10 Mg Tab) 10 mg PO DAILY [facility] Last Admin: 02/09/22 08:40 Dose: Not Given Mannitol (Mannitol 25% 12.5 Gm/50 Ml Vial) 12.5 gm IV EVERY HD PRN PRN Reason: Titrate to SBP (MUST DEFINE) Ondansetron HCl (Ondansetron 4 Mg/2 Ml Vial) 4 mg IV Q6HP PRN PRN Reason: NAUSEA / VOMITING Sevelamer Carbonate (Sevelamer Carbonate 800 Mg Tablet) 800 mg PO TIDWM [facility] Last Admin: 02/09/22 17:07 Dose: 800 mg Sodium Chloride (Flush Normal Saline 10 Ml) 10 ml IV BID [facility] Last Admin: 02/09/22 08:28 Dose: 10 ml Vitamin B Complex/Vit C/Folic Acid (Multivitamins,Therapeut 1 Tab) 1 tab PO DAILY [facility] Last Admin: 02/09/22 08:26 Dose: 1 tab Assessment/ Plan: Nephrology No dyspnea No chest pain Feeling better today No acute events overnight Vitals, medications, blood work and imaging reviewed in the chart. General: In no apparent distress, Oriented x3, Cooperative HEENT: Atraumatic Neck: Supple Respiratory: Right base rales Cardiovascular: Regular rate/rhythm, Edema Gastrointestinal: Soft and benign, Non-distended Musculoskeletal: No clubbing, No contractures Integumentary: No rashes, No cyanosis Neurological: Normal speech Laboratory Data (last 24 hrs) 02/06/22 15:45: WBC 11.10 H, Hgb 11.5 L, Hct 35.0 L, Plt Count 158 02/06/22 15:45: Sodium 132 L, Potassium 3.8, BUN 43 H, Creatinine 4.17 H, Glucose 100, Magnesium 2.3, Total Bilirubin 1.5 H, AST 22, ALT 38, Alkaline Phosphatase 135 H Imagings Data: [facility] EXAM DESCRIPTION: RAD - Chest Single View - 02/06/2022 3:53 pm CLINICAL HISTORY: SOB COMPARISON: Chest Single View dated 08/21/2017; Chest Single View dated 07/09/2016 FINDINGS: Lines: None. Lungs: Large area developing consolidation in the left lung. Pleural: Small pleural effusions bilaterally. Cardiac: The heart size is within normal limits. Mediastinum: Within normal limits. Bones: No acute fractures. Other: None IMPRESSION: Left lung process which may represent a large consolidative pneumonia or mass. Recommend further evaluation with chest CT. EXAM DESCRIPTION: CT - Thorax Wo Con - 02/06/2022 6:17 pm CLINICAL HISTORY: shortness of breath COMPARISON: Chest Single View dated 02/06/2022 FINDINGS: Chest Wall: No suspicious thyroid nodules or pathologic lymphadenopathy. Lungs: Bilateral pulmonary opacities, worse in the left upper lung. Pleura: Small bilateral pleural effusions. Mediastinum/jhony: No pathologic lymphadenopathy. Pulmonary arteries/Aorta: Limited evaluation without contrast. No aortic aneurysm. Heart: No significant pericardial effusion. Normal heart size. Multi-vessel coronary artery disease. Upper abdomen: No acute abnormality. Bones: No acute abnormality. Diffuse idiopathic skeletal hyperostosis noted in the spine. All CT scans are performed using dose optimization technique as appropriate and may include automated exposure control or mA/KV adjustment according to patient size. IMPRESSION: Bilateral airspace disease, worse in the left upper lung favored to represent pneumonia (viral) however asymmetric edema is within the differential. Conclusions/Impression: ESRD on HD -HD MWF -Emla cream prn Hyponatremia -HD as ordered HTN with CKD/ CHF -Continue Lisinopril -Continue Atenolol Diastolic CHF, A/C LE Edema -Low sodium diet -HD with UF -Continue Lasix Anemia in CKD -Retacrit MWF CKD MBD -Continue Ergo -Continue Renvela BL PNA Acute hypoxic respiratory failure -Continue Abx -Continue Oxygen supplementation PSA Cystitis with hematuria -Continue Cefepime
[2022-02-10] MEDS: ALBUTEROL 2.5 MG/3 ML NEB SOL NEB SCH ×2 (01:20→08:55)
[2022-02-10] MEDS: IPRATROPIUM BROM 0.5MG/2.5ML NEB SCH ×2 (01:20→08:55)
[2022-02-10] MEDS: CARVEDILOL 25 MG TABLET PO SCH (08:00)
[2022-02-10] MEDS: ASPIRIN 81 MG CHEWABLE TABLET PO SCH (08:27)
[2022-02-10] MEDS: DOCUSATE NA 100 MG CAP PO SCH (08:28)
[2022-02-10] MEDS: SEVELAMER CARBONATE 800 MG TABLET PO SCH (08:28)
[2022-02-10] MEDS: CLOPIDOGREL 75 MG TABLET PO SCH (08:30)
[2022-02-10] MEDS: MULTIVITAMINS,THERAPEUT 1 TAB PO SCH (08:30)
[2022-02-10] MEDS: FUROSEMIDE 40 MG/4 ML VIAL IV SCH (08:30)
[2022-02-10] MEDS: HEPARIN 5000 UNIT/ML 1 ML VIAL SQ SCH (08:31)
[2022-02-10] MEDS: AZITHROMYCIN IV 500 MG in NA CHLORIDE 0.9% 250 ML IVPB SCH (08:31)
[2022-02-10] MEDS: AMLODIPINE 10 MG TABLET PO SCH (08:32)
[2022-02-10] MEDS: lisinopriL 10 MG TAB PO SCH (08:32)
[2022-02-10 08:33] VITALS: BP 122/51
[2022-02-10 09:30] VITALS: O2SAT 97
--- NOTE | 2022-02-10 09:37 | P.PN ---
Date of Service: 02/07/22 Subjective Patient is doing well with no new complaints Physical Examination - Physical Exam General: Alert, Oriented x3, Cooperative, Mild distress Respiratory: Diminished, Crackles/rales Cardiovascular: No edema, Regular rate/rhythm, Normal S1 S2 Gastrointestinal: Normal bowel sounds, Soft and benign, No tenderness Musculoskeletal: No clubbing, No swelling, No contractures, No tenderness Integumentary: No rashes, No breakdown, No significant lesion Neurological: Normal gait, Normal speech, Normal strength at 5/5 x4 extr, Normal tone, Normal affect Assessment and Plan - Assessment Assessment: -Bilateral pneumonia. -ESRD. -Hypertension. -Hyperlipidemia. -Mild leukocytosis. -Elevated BNP. -History of DE\CAD with stents -Anemia of chronic disease - Plan Plan: 1. Continue with IV antibiotics 2. Awaiting cultures 3. Repeat chest x-ray 4. CT scan of the chest if pneumonia is not improving 5. Appreciate nephrology consultation 6. Continue with nebs as needed 7. O2 per protocol 8. Heplock IV 9. Repeat labs including CBC and renal function in a.m. 10. GI and DVT prophylaxis
[2022-02-10 09:38] VITALS: TEMP 99.5
--- NOTE | 2022-02-10 09:48 | P.PN ---
Date of Service: 02/08/22 Subjective Her clinical symptoms continue to improve. Plan to get patient hemodialyzed but unable to do dialysis through fistula Physical Examination - Physical Exam General: Alert, Oriented x3, Cooperative Respiratory: Clear bilaterally Cardiovascular: Regular rate/rhythm no murmur Gastrointestinal: Normal bowel sounds, Soft and benign, No tenderness Musculoskeletal: No clubbing, No swelling, No contractures, No tenderness Neurological: No focal deficits Assessment and Plan - Assessment Assessment: -Bilateral pneumonia. -ESRD. -Hypertension. -Hyperlipidemia. -Mild leukocytosis. -Elevated BNP. -History of ME\CAD with stents -Anemia of chronic disease - Plan Plan: 1. Continue with IV antibiotics 2. Awaiting cultures 3. Repeat chest x-ray 4. Hemodialysis per nephrology 5. Appreciate nephrology consultation 6. Continue with cardiac nebs 7. O2 per protocol 8. Heplock IV 9. Repeat labs 10. GI and DVT prophylaxis
--- NOTE | 2022-02-10 09:50 | P.PN ---
Date of Service: 02/09/22 Subjective Patient is doing well with no new complaints. Patient was finally able to get dialyzed through the fistula Physical Examination - Physical Exam General: Alert, Oriented x3, Cooperative Respiratory: Clear bilaterally Cardiovascular: Regular rate/rhythm no murmur Gastrointestinal: Normal bowel sounds, Soft and benign, No tenderness Musculoskeletal: No clubbing, No swelling, No contractures, No tenderness Neurological: No focal deficits Assessment and Plan - Assessment Assessment: -Bilateral pneumonia. -ESRD. -Hypertension. -Hyperlipidemia. -Mild leukocytosis. -Elevated BNP. -History of MT\CAD with stents -Anemia of chronic disease - Plan Plan: 1. Continue with IV antibiotics 2. Cultures are negative 3. Out of bed and ambulate and wean off of oxygen 4. Hemodialysis per nephrology 5. Appreciate nephrology consultation 6. Continue with cardiac meds 7. Strict BP control 8. Heplock IV 9. Repeat labs 10. GI and DVT prophylaxis
--- NOTE | 2022-02-10 09:54 | P.DS ---
Discharge Date: 02/10/22 Disposition: ROUTINE DISCHARGE Discharge Condition: GOOD Reason for Admission: Shortness of breath Consultations: Nephrology Brief History of Present Illness: Patient is a 67-year-old female with a past medical history significant for NH, HLD, ESRD, CAD who presents with complaint of shortness of breath onset 2 days ago. Patient reported associated signs and symptoms of dry cough, fever, chills, rhinorrhea and dizziness. Patient denies any other signs and symptoms. Symptoms are aggravated or relieved by nothing. Patient decided to present to the hospital due to worsening symptoms. Of note, patient reported having dialysis today. Patient on MWF schedule. Hospital Course: Patient has been doing well. Her hospitalization was prolonged because unable to access the fistula. There were finally able to access the fistula yesterday and patient was hemodialyzed. She is going to go to chair time today at 1045. Continue with oral antibiotics. She is stable for discharge home. Vital Signs/Physical Exam: Temp Pulse Resp BP Pulse Ox 99.5 F 84 18 122/51 L 98 02/10/22 08:00 02/10/22 08:30 02/10/22 04:00 02/10/22 08:30 02/10/22 04:00 General: Alert, In no apparent distress, Oriented x3 Laboratory Data at Discharge: WBC 8.80 K/uL (4.3-10.9) 02/09/22 05:37 Hgb 9.8 g/dL (12.0-15.0) L 02/09/22 05:37 Hct 30.0 % (36.0-45.0) L 02/09/22 05:37 Plt Count 155 K/uL (152-406) 02/09/22 05:37 PT 12.4 SECONDS (9.5-12.5) 02/06/22 18:40 INR 1.13 02/06/22 18:40 Sodium 135 mmol/L (136-145) L 02/09/22 05:37 Potassium 4.4 mmol/L (3.5-5.1) 02/09/22 05:37 BUN 82 mg/dL (7-18) H 02/09/22 05:37 Creatinine 6.51 mg/dL (0.55-1.3) H* 02/09/22 05:37 Glucose 115 mg/dL (74-106) H 02/09/22 05:37 Phosphorus 5.2 mg/dL (2.5-4.9) H 02/09/22 05:37 Magnesium 2.4 mg/dL (1.8-2.4) 02/09/22 05:37 Total Bilirubin 1.5 mg/dL (0.2-1.0) H 02/06/22 15:45 AST 22 U/L (15-37) 02/06/22 15:45 ALT 38 U/L (12-78) 02/06/22 15:45 Alkaline Phosphatase 135 U/L (45-117) H 02/06/22 15:45 Home Medications: Aspirin [Aspirin EC 81 MG] 162 mg PO DAILY #60 tablet. 08/22/17 Clopidogrel Bisulfate [Plavix*] 75 mg PO DAILY 08/22/17 Amlodipine Besylate 10 mg PO BID 02/06/22 Carvedilol [Coreg] 25 mg PO BID 02/06/22 Atorvastatin Calcium [Lipitor] 80 mg PO BEDTIME #30 tab 02/10/22 Calcium Carbonate [Tums Regular*] 500 mg PO TID PRN #90 tab 02/10/22 Ciprofloxacin HCl [Cipro 250 MG Tablet*] 250 mg PO BID #20 tab 02/10/22 Docusate [Colace Cap*] 100 mg PO BID #60 cap 02/10/22 Hydrocodone 5/APAP 325 [[place] 5/325*] 1 tab PO Q6H PRN #30 tab 02/10/22 Sevelamer Carbonate [Renvela*] 800 mg PO TIDWM #90 tab 02/10/22 Vitamin D [Drisdol*] 50,000 unit PO Q7D@0900 #7 cap 02/10/22 lisinopriL [Prinivil*] 10 mg PO DAILY #30 tab 02/10/22 New Medications: Ciprofloxacin HCl [Cipro 250 MG Tablet*] 250 mg PO BID #20 tab Docusate [Colace Cap*] 100 mg PO BID #60 cap Vitamin D [Drisdol*] 50,000 unit PO Q7D@0900 #7 cap Atorvastatin Calcium [Lipitor] 80 mg PO BEDTIME #30 tab Hydrocodone 5/APAP 325 [[place] 5/325*] 1 tab PO Q6H PRN #30 tab PRN Reason: Pain Scale 5-7 (Moderate) lisinopriL [Prinivil*] 10 mg PO DAILY #30 tab Sevelamer Carbonate [Renvela*] 800 mg PO TIDWM #90 tab Calcium Carbonate [Tums Regular*] 500 mg PO TID PRN #90 tab PRN Reason: Indigestion Physician Discharge Instructions: -DC IV and DC home -Follow-up with PCP in 1 to 2 weeks -Follow-up with nephrology for hemodialysis at 10 AM -Please call Dr. Joya at [phone] if any questions regarding hospital stay -Please call nursing station at [phone] if any nursing or medication questions -Return to the emergency room if symptoms worsen Diet: Renal Activity: Fall precautions Followup: Carlos Garza DO [ACTIVE - CAN ADMIT] - 1 Week (call for follow up apointment) Jac Huang MD [Primary Care Provider] - 1 Week (call for an apointment) Time spent managing pt's care (in minutes): 35
--- NOTE | 2022-02-10 11:56 | P.PN ---
Nephrology (S) Pt dialyzed yesterday, feels better overall and wants to go home, denies cough or dyspnea Vitals, medications, blood work and imaging reviewed in the chart. General: In no apparent distress, Oriented x3, Cooperative HEENT: Atraumatic Neck: Supple Respiratory: b/l air entry, scattered rales Cardiovascular: Mildly tachy, regular, no sig LE edema Gastrointestinal: Soft and benign, Non-distended Musculoskeletal: No clubbing, No contractures, Lt radiocephalic AVF with thrill and bruit Integumentary: No rashes, No cyanosis Neurological: Awake, alert, oriented, ormal speech Laboratory Data (last 24 hrs) Reviewed Conclusions/Impression: ESRD on HD -Last HD yesterday, today is her regular OP day for dialysis, pt can present to [facility] and request a make up chair to stay on schedule, metab profile should be better post HD yesterday HTN with CKD/ CHF -Continue home meds Diastolic CHF, A/C -Volume status improved with diuresis and UF yesterday PNA unspecified organism, hypoxia -Complete Abx coure -weaned off O2
[2022-02-13] MEDS ORDERED: DRISDOL (VITAMIN D=ERGOCALCIFEROL) 50000 UNIT CAP PO SCH (09:00)
== END 2022-02-10 11:59 | disposition home or self-care (01) | DRG 193 ==
LOC: ER 14:42 → ERHOLD 17:45 → 4TH 19:38
PROVIDERS: ADMIT Hospitalist; ATTEND Hospitalist
PROC: 5A1D70Z Performance of Urinary Filtration, Intermittent, Less than 6 Hours Per Day (ICD-10-PCS; principal; 2022-02-09)
DX: J18.9 Pneumonia, unspecified organism (principal); I50.33 Acute on chronic diastolic (congestive) heart failure; J96.01 Acute respiratory failure with hypoxia; N18.6 End stage renal disease; E87.1 Hypo-osmolality and hyponatremia; I13.2 Hypertensive heart and chronic kidney disease with heart failure and with stage 5 chronic kidney disease, or end stage renal disease; D63.1 Anemia in chronic kidney disease; E78.5 Hyperlipidemia, unspecified; D63.8 Anemia in other chronic diseases classified elsewhere; N28.89 Other specified disorders of kidney and ureter; I25.10 Atherosclerotic heart disease of native coronary artery without angina pectoris; I25.2 Old myocardial infarction; B96.5 Pseudomonas (aeruginosa) (mallei) (pseudomallei) as the cause of diseases classified elsewhere; Z99.2 Dependence on renal dialysis; Z95.5 Presence of coronary angioplasty implant and graft; Z88.1 Allergy status to other antibiotic agents; Z79.82 Long term (current) use of aspirin; Z79.02 Long term (current) use of antithrombotics/antiplatelets; Z79.899 Other long term (current) drug therapy; Z20.822 Contact with and (suspected) exposure to COVID-19
CPT/HCPCS: 0240U; 36415; 71045; 71250; 80048; 80076; 81001; 83605; 83735; 83880; 84100; 84145; 84439; 84443; 84484; 85025; 85610; 87040; 87077; 87086; 87088; 87186; 90935; 93005; 93306; 96365; 96375; 99285; J0456; J0692; J1644; J1940; J2250; J7050; J7613; J7614; J7644